=== PATIENT | female | born 1995 | race Caucasian/White ===

== ENCOUNTER → 2016-11-09 | Outpatient (CLI) | payer OTHER ==
[~2016-11-09] MED LIST: BCPILLS PO; PRT/20 PO; ZNTT/150 PO
--- NOTE | 2016-11-09 16:23 | DIAGNOSTIC IMAGING REPORT ---
MRI OF THE LEFT KNEE CLINICAL HISTORY: Left knee pain. COMPARISON STUDY: No priors. TECHNIQUE: MRI of the left knee was performed utilizing proton density, T1, and T2-weighted sequences in the axial, sagittal, coronal planes. IV contrast was not administered for this examination. Note that interpretation is suboptimal without plain film correlate. FINDINGS: Menisci: The medial and lateral menisci are intact. Ligaments: The anterior and posterior cruciate ligaments are intact. The medial and lateral collateral ligaments are within normal limits. Extensor mechanism: The extensor mechanism is intact. Hoffa's fat pad is normal in appearance. Articular cartilage and bone: The articular cartilage is intact and well maintained all 3 compartments. Normal marrow signal is preserved of the visualized bony structures. Joint effusion: None Soft tissues: The musculature surrounding the knee joint is normal in bulk and signal intensity. There is a tiny popliteal cyst which measures up to 1.5 cm. IMPRESSION: 1. There is no evidence of meniscal or ligamentous injury in the left knee. 2. The articular cartilage is well maintained. 3. Tiny popliteal cyst. Electronically signed by: Thomas Reyna M.D. 11/09/2016 4:21 PM Dictated Date/Time: 11/09/2016 4:17 PM
== END | disposition home or self-care (01) ==
LOC: C.MRI 15:13
PROVIDERS: ATTEND Family Medicine Sports Medicine
DX: M25.562 Pain in left knee (principal)

== ENCOUNTER 2017-05-12 12:39 | Emergency (ER) | payer OTHER ==
[~2017-05-12] VITALS: Ht 177.8 cm; Wt 91.4 kg
[~2017-05-12 12:39] MED LIST changes: -PRT/20 PO; -ZNTT/150 PO
[2017-05-12 12:43] VITALS: TEMP 36.6; Ht 177.8 cm; Wt 91.4 kg
[2017-05-12] MEDS ORDERED: SODIUM CHLORIDE 0.9% 1000ML 1,000 ML IV STA (12:54)
[2017-05-12] MEDS ORDERED: KETOROLAC TROMETHAMINE 30 MG/ML VIAL IV STA (12:54)
[2017-05-12] MEDS ORDERED: SODIUM CHLORIDE 0.9% 1000ML 500 ML IV STA (12:54)
[2017-05-12] MEDS ORDERED: ONDANSETRON INJ 2 MG/ML 2 ML VIAL IV STA (12:54)
--- NOTE | 2017-05-12 13:09 | EMERGENCY ROOM VISIT NOTE ---
History Report prepared by Madonna: Ed Melton Under the Supervision of: Dr. Thomas Loving M.D. First contact with patient: 12:48 Chief Complaint: ILLNESS Stated Complaint: NAUSEA,LIGHT HEADED,SHARP STOMACH PAIN History of Present Illness The patient is a 21 year old female who presents to the Emergency Room with complaints of persistent generalized illness beginning two weeks ago. Her symptoms include nausea, an episode of vomiting, upper abdominal pain, and lightheadedness. She states that her abdominal pain began four days ago. The patient notes that she has not been eating much over the past two weeks. She denies any back pain, known fevers, diarrhea, constipation, urinary symptoms, or vaginal discharge. She has no history of similar symptoms. The patient denies any recent falls or trauma. She was seen at [facility] yesterday for similar symptoms. Source of History: patient Onset: two weeks ago Position: other (generalized) Quality: other (illness) Timing: other (persistent) Associated Symptoms: + nausea, + vomiting (one episode), + abdominal pain ( beginning four days ago), No fevers (known), No back pain, No diarrhea, No urinary symptoms Note: The patient denies any vaginal discharge or constipation. She also complains of lightheadedness. Review of Systems See HPI for pertinent positives & negatives. A total of 10 systems reviewed and were otherwise negative. Past Medical & Surgical Medical Problems: (1) Bronchitis (2) Mononucleosis (3) No Known Active Medical Problems Family History No pertinent family history stated. Social History Smoking Status: Never Smoker Alcohol Use: none Drug Use: none Marital Status: single Housing Status: lives alone Occupation Status: [employer] student Current/Historical Medications Scheduled Control Pills ( Control Pills), 1 TAB PO DAILY Pantoprazole (Protonix), 20 MG PO DAILY Ranitidine (Zantac), 150 MG PO BID Allergies Coded Allergies: No Known Allergies (Unverified , 06/05/16) Physical Exam Vital Signs Date Time Temp Pulse Resp B/P (MAP) Pulse Ox O2 Delivery O2 Flow Rate FiO2 05/12/17 15:53 52 18 113/68 100 Room Air 05/12/17 14:44 54 18 122/74 100 Room Air 05/12/17 12:43 36.6 89 18 159/102 99 Room Air Physical Exam GENERAL: Patient is in no acute distress. HEENT: No acute trauma, normocephalic atraumatic, mucous membranes moist, no nasal congestion, no scleral icterus. NECK: No stridor, no adenopathy, no meningismus, trachea is midline. LUNGS: Clear to auscultation bilaterally, no wheeze, no rhonchi, breath sounds equal. HEART: Without murmurs gallops or rubs, regular rate and rhythm. ABDOMEN: Soft, bowel sounds positive, no hernias, no peritonitis. Moderately tender to both upper quadrant but mostly the right upper quadrant. EXTREMITIES: No cyanosis or edema, full range of motion of all the joints without pain or difficulty, no signs for acute trauma. NEUROLOGIC: Oriented x 3, no acute motor or sensory deficits, no focal weakness. SKIN: No rash, no jaundice, no diaphoresis. Medical Decision & Procedures ER Provider Diagnostic Interpretation: Radiology results as stated below per my review and radiologist interpretation: ABDOMINAL ULTRASOUND, RIGHT UPPER QUADRANT FINDINGS: The liver is sonographically normal. No gallstones are identified. There is no gallbladder wall thickening. No biliary ductal dilatation is present. Common bile duct measures 4 mm in caliber. The pancreas is within normal limits by sonography. There is no right hydronephrosis. IMPRESSION: No significant abnormality identified within the right upper quadrant. Electronically signed by: Bradley Magadleno M.D. 05/12/2017 2:39 PM PA CHEST RADIOGRAPH AND UPRIGHT AND SUPINE AP RADIOGRAPHS OF THE ABDOMEN FINDINGS: Lung volumes are normal. Lungs are clear. No pneumothorax or pleural effusion is present. Pulmonary vascularity is normal. Cardiomediastinal silhouette is normal. There is no free air. The bowel gas pattern is normal. IMPRESSION: 1. No free air or evidence of bowel obstruction. 2. No acute cardiopulmonary findings. Electronically signed by: Bradley Magdaleno M.D. Laboratory Results 05/12/17 13:05 Red Blood Count 4.43, Mean Corpuscular Volume 82.8, Mean Corpuscular Hemoglobin 27.5, Mean Corpuscular Hemoglobin Concent 33.2, Mean Platelet Volume 9.7, Neutrophils (%) (Auto) 66.9, Lymphocytes (%) (Auto) 26.3, Monocytes (%) (Auto) 5.7, Eosinophils (%) (Auto) 0.7, Basophils (%) (Auto) 0.2, Neutrophils # (Auto) 6.55, Lymphocytes # (Auto) 2.57, Monocytes # (Auto) 0.56, Eosinophils # (Auto) 0.07, Basophils # (Auto) 0.02 05/12/17 13:05 Test 05/12/17 13:05 05/12/17 13:10 White Blood Count 9.79 K/uL (4.8-10.8) Red Blood Count 4.43 M/uL (4.2-5.4) Hemoglobin 12.2 g/dL (12.0-16.0) Hematocrit 36.7 % (37-47) Mean Corpuscular Volume 82.8 fL (80-100) Mean Corpuscular Hemoglobin 27.5 pg (25-34) Mean Corpuscular Hemoglobin Concent 33.2 g/dl (32-36) Platelet Count 313 K/uL (130-400) Mean Platelet Volume 9.7 fL (7.4-10.4) Neutrophils (%) (Auto) 66.9 % Lymphocytes (%) (Auto) 26.3 % Monocytes (%) (Auto) 5.7 % Eosinophils (%) (Auto) 0.7 % Basophils (%) (Auto) 0.2 % Neutrophils # (Auto) 6.55 K/uL (1.4-6.5) Lymphocytes # (Auto) 2.57 K/uL (1.2-3.4) Monocytes # (Auto) 0.56 K/uL (0.11-0.59) Eosinophils # (Auto) 0.07 K/uL (0-0.5) Basophils # (Auto) 0.02 K/uL (0-0.2) RDW Standard Deviation 43.6 fL (36.4-46.3) RDW Coefficient of Variation 14.2 % (11.5-14.5) Immature Granulocyte % (Auto) 0.2 % Immature Granulocyte # (Auto) 0.02 K/uL (0.00-0.02) Anion Gap 6.0 mmol/L (3-11) Est Creatinine Clear Calc Drug Dose 186.5 ml/min Estimated GFR () > 150.0 Estimated GFR (Non- 131.9 BUN/Creatinine Ratio 13.6 (10-20) Calcium Level 9.1 mg/dl (8.5-10.1) Total Bilirubin 0.3 mg/dl (0.2-1) Aspartate Amino Transf (AST/SGOT) 16 U/L (15-37) Alanine Aminotransferase (ALT/SGPT) 21 U/L (12-78) Alkaline Phosphatase 98 U/L (45-117) Total Protein 7.8 gm/dl (6.4-8.2) Albumin 3.9 gm/dl (3.4-5.0) Globulin 3.9 gm/dl (2.5-4.0) Albumin/Globulin Ratio 1.0 (0.9-2) Lipase 82 U/L (73-393) Human Chorionic Gonadotropin, Qual NEG (NEG) Urine Color YELLOW Urine Appearance CLEAR (CLEAR) Urine pH 5.5 (4.5-7.5) Urine Specific [place] 1.022 (1.000-1.030) Urine Protein NEG (NEG) Urine Glucose (UA) NEG (NEG) Urine Ketones NEG (NEG) Urine Occult Blood 2+ (NEG) Urine Nitrite NEG (NEG) Urine Bilirubin NEG (NEG) Urine Urobilinogen NEG (NEG) Urine Leukocyte Esterase SMALL (NEG) Urine WBC (Auto) 10-30 /hpf (0-5) Urine RBC (Auto) 0-4 /hpf (0-4) Urine Hyaline Casts (Auto) 1-5 /lpf (0-5) Urine Epithelial Cells (Auto) >30 /lpf (0-5) Urine Bacteria (Auto) 1+ (NEG) Laboratory results reviewed by me. Medications Administered Medications (Trade) Dose Ordered Sig/Nitin Route Start Time Stop Time Status Last Admin Dose Admin Sodium Chloride 500 ml @ 999 mls/hr Q31M STAT IV 05/12/17 12:54 05/12/17 13:24 DC 05/12/17 13:13 999 MLS/HR Ondansetron HCl (Zofran Inj) 4 mg NOW STAT IV 05/12/17 12:54 05/12/17 12:56 DC 05/12/17 13:12 4 MG Sodium Chloride 1,000 ml @ 200 mls/hr Q5H STAT IV 05/12/17 12:54 05/12/17 17:53 05/12/17 13:13 200 MLS/HR Ketorolac Tromethamine (Toradol Inj) 30 mg NOW STAT IV 05/12/17 12:54 05/12/17 12:56 DC 05/12/17 13:12 30 MG Pantoprazole Sodium (Protonix Tab) 40 mg NOW STAT PO 05/12/17 14:57 05/12/17 14:58 DC 05/12/17 15:12 40 MG Ranitidine HCl (zANTac TAB) 150 mg NOW STAT PO 05/12/17 14:57 05/12/17 14:58 DC 05/12/17 15:12 150 MG Lidocaine HCl (Viscous Lidocaine 2% Soln) 20 ml STK-MED ONCE .ROUTE 05/12/17 15:20 05/12/17 15:21 DC 05/12/17 15:23 20 ML Al Hydroxide/Mg Hydroxide (Maalox Susp) 30 ml STK-MED ONCE .ROUTE 05/12/17 15:20 05/12/17 15:21 DC 05/12/17 15:23 30 ML ED Course 1248: The patient was evaluated in room C2B. A complete history and physical exam was performed. 1254: Ordered Toradol Inj 30 mg IV, Sodium Chloride 1000 ml @ 200 mls/hr IV, Zofran Inj 4 mg IV, Sodium Chloride 500 ml @ 999 mls/hr IV. 1457: Ordered Zantac Tab 150 mg PO, Protonix Tab 40 mg PO. 1514: Ordered GI Cocktail 24 mL PO. 1540: Reevaluated the patient. Discussed results and discharge instructions: she verbalized understanding and agreement. The patient is ready for discharge. Medical Decision The patient is a 21 year old female who presents to the ED with complaints of nausea and abdominal pain. Differential diagnoses considered include gallbladder disease, pancreatitis, constipation, ulcer, gastritis, UTI, , and appendicitis. There is no leukocytosis or concerning anemia. No significant electrolyte abnormality, kidney failure or hepatitis. No evidence for pancreatitis. testing is negative. Urinalysis does not show infection. Obstruction series does not show constipation, bowel obstruction, free air or pneumonia. Gallbladder ultrasound was unremarkable. The patient received IV saline, IV Toradol and IV Zofran. She was given a GI cocktail. The GI cocktail did seem to help more than anything. She received oral Zantac and oral Protonix. The patient is not toxic or febrile. There is no peritonitis. I think she may have gastritis or possibly an early ulcer. I'm discharging her on Zantac and Protonix. If things are worsening, she can return. She will contact [facility] for a GI referral. Medication Reconcilliation Current Medication List: was personally reviewed by me Blood Pressure Screening Patient's blood pressure: Elevated blood pressure Blood pressure disposition: Elevated BP felt to be situational Impression Primary Impression: Epigastric abdominal pain Additional Impression: Nausea Scribe Attestation The scribe's documentation has been prepared under my direction and personally reviewed by me in its entirety. I confirm that the note above accurately reflects all work, treatment, procedures, and medical decision making performed by me. Departure Information Dispostion Home / Self-Care Prescriptions Pantoprazole (Protonix) 20 Mg Tab 20 MG PO DAILY, #30 TAB 3 Refills Prov: Thomas Loving M.D. 05/12/17 Ranitidine (Zantac) 150 Mg Tab 150 MG PO BID for 14 Days, #28 TAB Prov: Thomas Loving M.D. 05/12/17 Referrals Tabatha Rice PA-C (PCP) Forms HOME CARE DOCUMENTATION FORM, IMPORTANT VISIT INFORMATION, WORK / SCHOOL INSTRUCTIONS Patient Instructions My [facility] Additional Instructions zantac 2x per day for 2 weeks protonix daily for 1 month talk with [facility] about setting up a GI appt use tylenol for pain bland diet as discussed return for fever, vomiting or worsening symptoms testing today was ok as discussed Problem Qualifiers
[2017-05-12 13:21] LABS: BASO % 0.2 %; BASO ABS # 0.02 K/uL (0-0.2); COMPLETE YES; EOS % 0.7 %; HEMATOCRIT 36.7 % (37-47); IG% 0.2 %; LYMPH % 26.3 %; LYMPH ABS # 2.57 K/uL (1.2-3.4); MEAN CELL VOLUME 82.8 fL (80-100); MEAN CORPUSCULAR HEMOGLOBIN 27.5 pg (25-34); MEAN CORPUSCULAR HGB CONC 33.2 g/dl (32-36); MEAN PLATELET VOLUME 9.7 fL (7.4-10.4); MONO % 5.7 %; NEUT % 66.9 %; PLATELET COUNT 313 K/uL (130-400); RED BLOOD COUNT 4.43 M/uL (4.2-5.4); WHITE BLOOD COUNT 9.79 K/uL (4.8-10.8)
[2017-05-12 13:28] LABS: URINE APPEARANCE CLEAR (CLEAR); URINE BILIRUBIN NEG (NEG); URINE COLOR YELLOW; URINE EPITHELIAL CELL AUTO >30 /lpf (0-5); URINE NITRITE NEG (NEG); URINE PH 5.5 (4.5-7.5); URINE SPECIFIC GRAVITY 1.022 (1.000-1.030); UROBILINOGEN NEG (NEG); ZZUR CULT IF INDIC CLEAN CATCH YES
[2017-05-12 13:37] LABS: MANUAL MICROSCOPIC REQUIRED? NO; REVIEW REQ? NO
[2017-05-12 13:38] LABS: ALT/SGPT 21 U/L (12-78); BLOOD UREA NITROGEN 8 mg/dl (7-18); BUN/CREATININE RATIO 13.6 (10-20); CALCIUM 9.1 mg/dl (8.5-10.1); CARBON DIOXIDE 26 mmol/L (21-32); CHLORIDE 105 mmol/L (98-107); CREATININE 0.59 mg/dl (0.60-1.20); GLUCOSE 89 mg/dl (70-99); POTASSIUM 3.5 mmol/L (3.5-5.1); SODIUM 137 mmol/L (136-145)
[2017-05-12 13:41] LABS: ALKALINE PHOSPHATASE 98 U/L (45-117); AST/SGOT 16 U/L (15-37)
[2017-05-12 13:43] LABS: PREG INTERNAL NEGATIVE QC NEG CLEAR BACKGROUND; PREG INTERNAL POSITIVE QC POS CONTROL LINE
--- NOTE | 2017-05-12 14:19 | DIAGNOSTIC IMAGING REPORT ---
PA CHEST RADIOGRAPH AND UPRIGHT AND SUPINE AP RADIOGRAPHS OF THE ABDOMEN CLINICAL HISTORY: Abdominal pain. COMPARISON STUDY: Chest radiograph and chest CT June 15, 2016. FINDINGS: Lung volumes are normal. Lungs are clear. No pneumothorax or pleural effusion is present. Pulmonary vascularity is normal. Cardiomediastinal silhouette is normal. There is no free air. The bowel gas pattern is normal. IMPRESSION: 1. No free air or evidence of bowel obstruction. 2. No acute cardiopulmonary findings. Electronically signed by: Bradley Magdaleno M.D. 05/12/2017 2:18 PM Dictated Date/Time: 05/12/2017 2:17 PM
--- NOTE | 2017-05-12 14:40 | DIAGNOSTIC IMAGING REPORT ---
ABDOMINAL ULTRASOUND, RIGHT UPPER QUADRANT HISTORY: Abdominal pain and nausea. COMPARISON: Abdominal series May 12, 2017. FINDINGS: The liver is sonographically normal. No gallstones are identified. There is no gallbladder wall thickening. No biliary ductal dilatation is present. Common bile duct measures 4 mm in caliber. The pancreas is within normal limits by sonography. There is no right hydronephrosis. IMPRESSION: No significant abnormality identified within the right upper quadrant. Electronically signed by: Bradley Magdaleno M.D. 05/12/2017 2:39 PM Dictated Date/Time: 05/12/2017 2:38 PM
[2017-05-12] MEDS ORDERED: PANTOprazole SOD 40 MG TAB PO STA (14:57)
[2017-05-12] MEDS ORDERED: RANITIDINE HCL 150 MG TAB PO STA (14:57)
[2017-05-12] MEDS ORDERED: GI COCKTAIL PO STA (15:14)
[2017-05-12] MEDS ORDERED: ALUMINUM/MAGNESIUM SUSP 30 ML UDC ONE (15:20)
[2017-05-12] MEDS ORDERED: LIDOCAINE HCL 2% VISC SOLN 20 ML UDC ONE (15:20)
[2017-05-12] MEDS ORDERED: ZNTT/150 PO (15:44)
[2017-05-12] MEDS ORDERED: PRT/20 PO (15:44)
[2017-05-12 15:53] VITALS: BP 113/68; PULSE 52; O2SAT 100
== END 2017-05-12 16:04 | disposition home or self-care (01) ==
LOC: C.EDB 12:40 → C.EDC 16:04
DX: R10.13 Epigastric pain (principal); R11.0 Nausea

== ENCOUNTER 2019-06-26 05:11 | Inpatient (IN) ==
[2019-06-26] MEDS ORDERED: OXYTOCIN 30 UNITS/500 ML BAG IV PRN ×2 (06:40→23:13)
--- NOTE | 2019-06-26 06:49 | History & Physical Report ---
Date of Service June 26, 2019 Assessment & Plan (1) Leakage, amniotic fluid: (2) Premature rupture of membranes: 23 yo at 37 wks with PPROM, no s/s of labor VSS Afebrile FHR reassuring Discussed pitocin IOL, declines and likes to walk and go into labor on her own Plan to admit, monitor, ambulate and reevaluate Will sign out to Heidy Wagner History of Present Illness Chief Complaint: Leaking of fluids Primary Care Provider: Tabatha Rice PA-C Patient is a 23 yo at 37 wks Started to have LOF, multiple gushes and trickles at 4 am, has been clear No ctxs/VB/ Fever/ chills/ N&V +FM's Her has been uncomplicated Allergies Allergy/AdvReac Type Severity Reaction Status Date / Time No Known Allergies Allergy Verified 06/26/19 05:40 Home Medications Home Medications Medication Instructions Recorded Confirmed Type ferrous sulfate 325 mg PO DAILY 06/26/19 06/26/19 History vit [id number] 1 tab PO DAILY 06/26/19 06/26/19 History [ Vitamin] Patient History Medical History No pertinent past medical history Surgical History No pertinent past surgical history Social History Preferred Language: Venezuelan Communication Ability: Effective Network Diagnostic Support Specialist Required: No Beliefs That Will Affect Care: None marital status: Single Current Living Situation: Significant Other Current Living Situation Comment: Pt lives with boyfriend Other Information That Helps Us Care for You: No Feels Safe at Home: Yes Safety Concerns: Feels Safe At This Time Smoking Status: Never smoker Do You Dip or Chew Tobacco: No ; Second Hand Exposure: Yes ; Hx Alcohol Use: No 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
[2019-06-26 07:05] LABS: Hematocrit (blood only) 35.8 % (37-47); Hemoglobin 11.7 g/dL (12.0-16.0); Mean Corpuscular Hemoglobin 27.3 pg (25-34); Mean Corpuscular Volume 83.6 fL (80-100); Mean Platelet Volume 9.5 fL (7.4-10.4); Platelet Count 301 K/uL (130-400); RDW Coefficient of Variation 14.2 % (11.5-14.5); RDW Standard Deviation 42.7 fL (36.4-46.3); Red Blood Count 4.28 M/uL (4.2-5.4)
[2019-06-26 07:28] LABS: Mean Corpuscular Hgb Conc 32.7 g/dL (32-36)
[2019-06-26] MEDS ORDERED: miSOPROStol 50 MCG TAB PO ONE (08:15)
[2019-06-26] MEDS ORDERED: miSOPROStol 50 MCG TAB PO SCH (13:45)
[2019-06-26] MEDS ORDERED: BUTORPHANOL TARTRATE 1 MG/ML VIAL IV PRN (17:04)
[2019-06-26] MEDS ORDERED: BUTORPHANOL TARTRATE 1 MG/ML VIAL ONE (17:12)
[2019-06-26] MEDS: LACTATED RINGER'S 1,000 ML IV PRN ×2 (17:18→19:27)
[2019-06-26] MEDS ORDERED: fentaNYL citrate 100 MCG/2 ML VIAL ONE (18:19)
[2019-06-26] MEDS ORDERED: ePHEDrine sulfate 50 MG/ML AMP ONE (18:19)
[2019-06-26] MEDS ORDERED: BUPIVACAINE 0.25% 30 ML VIAL ONE (18:19)
--- NOTE | 2019-06-26 18:45 | Anesthesiology Consultation ---
Date of Service June 26, 2019 Assessment & Plan (1) Encounter for pre-operative examination: Chart Review Chart Review: Patient NOT seen in Pre Admission Testing and Acceptable Risk for Labor Epidural Consults Requested none ASA ASA2 Proposed Anesthesia Anesthesia Type: Labor Epidural Risk / Benefits Reviewed With: PT / POA / Parent / Guardian, Accepts Plan and Informed Consent Obtained History Height/Weight Height: 5 ft 10 in Weight: 117.934 kg Allergies Allergy/AdvReac Type Severity Reaction Status Date / Time No Known Allergies Allergy Verified 06/26/19 05:40 Medications Home Medications Medication Instructions Recorded Confirmed Last Taken ferrous sulfate 325 mg PO DAILY 06/26/19 06/26/19 06/22/19 08:00 vit no.[id number] 1 tab PO DAILY 06/26/19 06/26/19 06/25/19 08:00 [ Vitamin] Active Medications Generic Name Dose Route Start Last Admin Trade Name Freq PRN Reason Stop Dose Admin Lactated Ringer's 1,000 mls @ 150 mls/hr 06/26/19 06:40 06/26/19 19:27 Lr IV 06/28/19 06:39 999 mls/hr .[id number] PRN Administration L&D Protocol Protocol Misoprostol 50 mcg 06/26/19 13:45 06/26/19 13:54 Cytotec PO 07/26/19 13:44 50 mcg ONCE JAIMEE Administration NPO Date Last Intake of Fluids: 06/26/19 Time Last Intake of Fluids: 18:40 Date Last Intake of Solids: 06/25/19 Time Last Intake of Solids: 17:00 Past Medical History Medical History No pertinent past medical history Exercise / Class Metabolic Activity II 4-5 Yardwork/Stairs/Walk up hill Past Surgical History Surgical History No pertinent past surgical history Past Anesthesia History No Family Hx of Anesthesia Complications History of PONV Hx of Motion Sickness Social History Smoking Status: Never smoker Do You Dip or Chew Tobacco: No Hx Alcohol Use: No Hx Substance Use: No substance use type: does not use Review of Systems Patient denies history of abnormal bleeding or bleeding disorder. Patient denies active use of anticoagulants other than low dose aspirin. Patient denies numbness, tingling or weakness in lower extremities. Physical Exam Vital Signs Last Vital Signs Temp 36.5 C 06/26/19 16:27 Pulse 73 06/26/19 19:29 Resp 20 06/26/19 11:11 BP 149/87 H 06/26/19 19:29 Pulse Ox 96 06/26/19 19:29 Constitutional not obese (Gravid uterus) ENMT Mouth: no TMJ abnormality and oral opening not small Thyromental Distance: > or= 3.5 Finger Breadths Mallampati Class: II Neck normal visual inspection; neck extension not limited Respiratory normal respiratory effort Auscultation: lungs clear to auscultation bilaterally Cardiovascular Rate/Rhythm: regular rate and regular rhythm Heart Sounds: no murmur Neurologic moves all extremities Psychiatric Orientation: alert and oriented x 3 Testing Laboratory Results 06/26/19 06:47
[2019-06-26] MEDS: fentaNYL 2MCG/ML ROPIV 1.25MG/ML 100 ML BAG EPI ONE ×2 (19:02→19:10)
[2019-06-26] MEDS ORDERED: ePHEDrine sulfate 50 MG/ML AMP IV PRN (19:33)
[2019-06-26] MEDS ORDERED: ONDANSETRON INJ 2 MG/ML 2 ML VIAL IV PRN (19:33)
[2019-06-26] MEDS ORDERED: NALBUPHINE HCL INJ 10 MG/ML AMP IV PRN (19:33)
[2019-06-26] MEDS ORDERED: NALOXONE HCL 0.4 MG/1 ML VIAL/CARP IV PRN (19:33)
[2019-06-26] MEDS ORDERED: NALOXONE HCL 1 MG in SODIUM CHLORIDE 0.9% 1000ML 1,000 ML IV PRN (19:33)
[2019-06-26] MEDS ORDERED: fentaNYL 2MCG/ML ROPIV 1.25MG/ML 100 ML BAG EPI PRN (19:33)
[2019-06-26] MEDS ORDERED: DiphenhydrAMINE HCL 50 MG/ML VIAL IV PRN (19:33)
[2019-06-26] MEDS ORDERED: SUPERCREAM 0.870% 15 GM JAR EXT PRN (23:13)
[2019-06-26] MEDS ORDERED: BENZOCAINE 20% AER SPR 82.5 GM CAN EXT PRN (23:13)
[2019-06-26] MEDS ORDERED: OXYCODONE/ACETAMINOPHEN 5mg/325mg TAB PO PRN (23:13)
[2019-06-26] MEDS ORDERED: BISACODYL 10 MG SUPP PR PRN (23:13)
[2019-06-26] MEDS ORDERED: ACETAMINOPHEN W/CODEINE #3 1 TAB PO PRN (23:13)
[2019-06-26] MEDS ORDERED: ACETAMINOPHEN 325 MG TAB PO PRN (23:13)
[2019-06-26] MEDS ORDERED: HYDROCORTISONE ACETATE 25 MG SUPP PR PRN (23:13)
[2019-06-26] MEDS ORDERED: DIPHTHERIA/TETANUS/PERTUSSIS 0.5 ML SYR/VIAL IM ONE (23:13)
--- NOTE | 2019-06-26 23:23 | Anesthesia Procedure Note ---
Date of Service June 26, 2019 Anesthesia Post Epidural Note Vital Signs Vital Signs: Temp Pulse Resp BP Pulse Ox 36.7 C 89 20 100/63 97 06/26/19 21:15 06/26/19 23:14 06/26/19 22:00 06/26/19 23:13 06/26/19 23:14 Pain Intensity Bilateral Abdomen: Pain Intensity: 0 Notes Mental Status: alert / awake / arousable and participated in evaluation Nausea / Vomiting: adequately controlled Pain: adequately controlled Airway Patency, RR, SpO2: stable & adequate BP & HR: stable & adequate Hydration State: stable & adequate Neuraxial Anesthesia: was administered and sensory block is resolving Anesthetic Complications: no major complications apparent and Pt Satisfied with anesthetic care Epidural: Removed without complications and With tip intact
--- NOTE | 2019-06-27 00:42 | Delivery Summary ---
DATE OF OPERATION: 06/26/2019 She is now 1, para 1. Blood type is O negative. Vaginal beta strep negative. She was admitted with spontaneous rupture of membranes at 37 weeks gestation. On admission, she was not having any contractions. She was given p.o. Cytotec 50 mcg. 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 She was given another dose of p.o. Cytotec. On admission, her cervix was 0.5 cm and firm. By the time she got her second p.o. Cytotec dose, it was 1 to 2. She went to full dilatation, pushed out a live female infant via direct occiput anterior position over an intact perineum. Infant was suctioned through the mouth and the nose. Shoulders delivered without difficulty. Cord was clamped, cut by the father. Cord blood was taken. With I.V. Pitocin, the uterus was removed intact. Inspection of the perineum revealed a tear down through the part of the rectal sphincter capsule. Everything was repaired anatomically. We first approximated the anterior rectal sphincter capsule with a running 2-0 heavy Vicryl. Then, I found the top of the vaginal defect and did a running 2-0 Vicryl out to beyond the hymenal ring and did a deep suture to approximate the subvaginal tissues horizontally then did deep suture to approximate the bulbocavernosus muscle, 2 deep sutures to approximate the perineal body. The approximation was palpated and found to be good. Then, I did a running subcuticular suture to approximate the perineal skin edges. Following this, I palpated the repair. There was no hematoma formation. Sponges were removed from the vagina and I did a rectal examination which revealed no stitches through the rectum and good rectal sphincter tone. Following this, hemostasis was good. Estimated blood loss was 400 mL. The patient tolerated the procedure well. I attest to the content of the Intraoperative Record and any orders documented therein. Any exception s are noted below.
[2019-06-27] MEDS: IBUPROFEN 600 MG TAB PO PRN ×4 (03:08→23:40)
[2019-06-27 06:42] LABS: Hemoglobin 10.6 g/dL (12.0-16.0); Mean Corpuscular Hemoglobin 27.5 pg (25-34); Mean Corpuscular Hgb Conc 33.1 g/dL (32-36); Mean Corpuscular Volume 83.1 fL (80-100); Mean Platelet Volume 9.5 fL (7.4-10.4); Platelet Count 272 K/uL (130-400); RDW Coefficient of Variation 14.3 % (11.5-14.5); RDW Standard Deviation 43.4 fL (36.4-46.3); Red Blood Count 3.85 M/uL (4.2-5.4); White Blood Count 14.22 K/uL (4.8-10.8)
[2019-06-27] MEDS: DOCUSATE SODIUM 100 MG CAP PO SCH ×2 (08:54→20:50)
[2019-06-27] MEDS: PRENATAL VITAMIN 1 TAB PO SCH (08:54)
[2019-06-27] MEDS: FERROUS SULFATE 325 MG TAB PO SCH (08:56)
--- NOTE | 2019-06-27 10:23 | Obstetrical Progress Note ---
Date of Service June 27, 2019 Assessment & Plan (1) normal course: PPD 31 pt doing well anticipate disch tomorrow Results & Data Vital Signs (Past 12 Hours) Vital Signs Temp Pulse Pulse Resp BP BP Pulse Ox 06/27/19 08:50 36.9 C 69 20 118/71 06/27/19 07:20 36.8 C 20 06/27/19 07:19 77 118/74 06/27/19 04:05 36.7 C 83 16 116/63 06/27/19 01:15 36.6 C 96 H 96 H 20 125/60 125/60 06/27/19 00:45 79 16 126/79 06/27/19 00:29 93 H 122/90 06/27/19 00:15 102 H 18 118/84 06/27/19 00:00 81 20 115/58 L 06/26/19 23:45 87 18 128/70 06/26/19 23:30 104 H 18 138/65 06/26/19 23:15 36.6 C 20 06/26/19 23:14 89 97 06/26/19 23:13 102 H 100/63 06/26/19 23:10 78 94 06/26/19 23:09 88 97 06/26/19 23:04 100 H 96 06/26/19 23:00 90 106/55 L 06/26/19 22:59 93 H 97 06/26/19 22:54 100 H 96 06/26/19 22:49 93 H 87 L 06/26/19 22:44 94 H 82 L 06/26/19 22:43 88 91 06/26/19 22:39 92 H 96 06/26/19 22:36 96 H 93 06/26/19 22:34 95 H 100 06/26/19 22:30 50 L 18 122/78 06/26/19 22:29 64 98 06/26/19 22:27 84 88 L 06/26/19 22:24 68 98
[2019-06-27] MEDS ORDERED: BISACODYL 5 MG TABEC PO SCH (20:00)
[2019-06-28 06:40] LABS: Hematocrit (blood only) 30.9 % (37-47); Hemoglobin 10.3 g/dL (12.0-16.0)
--- NOTE | 2019-06-28 08:47 | Obstetrical Progress Note ---
Date of Service June 28, 2019 Subjective Patient is seen and examined. She feels well, no complaints. Ambulating without dizziness Voiding without difficulty Tolerating regular diet with out N&V Bleeding is minimal No fever/ chills/ CP/ SOB/ N&V/ Leg pain Breast feeding without problems Vital Signs Temp Pulse Pulse Resp BP BP Pulse Ox 06/27/19 23:35 36.6 C 86 18 119/70 98 06/27/19 19:55 36.8 C 86 18 128/75 97 06/27/19 16:45 36.8 C 70 18 127/76 98 06/27/19 13:44 36.4 C L 81 18 125/74 06/27/19 13:40 36.6 C 87 18 121/77 06/27/19 12:20 36.6 C 92 H 20 125/87 06/27/19 08:50 36.9 C 69 20 118/71 Lab Results 06/26/19 06/27/19 06/27/19 Range/Units 06:47 06:25 06:25 WBC 11.40 H 14.22 H (4.8-10.8) K/uL RBC 4.28 3.85 L (4.2-5.4) M/uL Hgb 11.7 L 10.6 L (12.0-16.0) g/dL Hct 35.8 L 32.0 L (37-47) % MCV 83.6 83.1 (80-100) fL MCH 27.3 27.5 (25-34) pg MCHC 32.7 33.1 (32-36) g/dL RDW Std Deviation 42.7 43.4 (36.4-46.3) fL RDW Coeff of Kory 14.2 14.3 (11.5-14.5) % Plt Count 301 272 (130-400) K/uL MPV 9.5 9.5 (7.4-10.4) fL Blood Type O Negative Antibody Screen NEGATIVE Screen Cancelled Mother's Rh Status RH Neg Maternal Bleed 0 ML KB Cells Counted 0 /Adult RBC Ratio 0.00 06/28/19 Range/Units 06:24 WBC (4.8-10.8) K/uL RBC (4.2-5.4) M/uL Hgb 10.3 L (12.0-16.0) g/dL Hct 30.9 L (37-47) % MCV (80-100) fL MCH (25-34) pg MCHC (32-36) g/dL RDW Std Deviation (36.4-46.3) fL RDW Coeff of Kory (11.5-14.5) % Plt Count (130-400) K/uL MPV (7.4-10.4) fL Blood Type Antibody Screen Screen Mother's Rh Status Maternal Bleed ML KB Cells Counted /Adult RBC Ratio PE: General: Alert, orientedx3, NAD Abd: soft, NT, fundus firm, below Umbilicus Perineum intact, Lochia rubra minimal Ext; NT, no edema AP: 23 yo s/p , ppd# 2 VSS Afebrile doing well Continue routine care All questions were answered Discussed when to call D/C home , f/u in office Results & Data Vital Signs (Past 12 Hours) Vital Signs Temp Pulse Resp BP Pulse Ox 06/27/19 23:35 36.6 C 86 18 119/70 98
[2019-06-28] MEDS: FERROUS SULFATE 325 MG TAB PO SCH (09:48)
[2019-06-28] MEDS: IBUPROFEN 600 MG TAB PO PRN (09:48)
[2019-06-28] MEDS: PRENATAL VITAMIN 1 TAB PO SCH (09:48)
[2019-06-28] MEDS: DOCUSATE SODIUM 100 MG CAP PO SCH (09:48)
== END 2019-06-28 14:30 | disposition home or self-care (01) | DRG 768 ==
LOC: OPB 05:11 → 4S1 05:17 → 4N 06-27 08:12

== ENCOUNTER 2023-10-05 18:34 | Inpatient (IN) ==
--- NOTE | 2023-10-05 18:43 | ED Triage Note ---
Date of Service October 05, 2023 Provider in Triage Author: Denice Chow History of Present Illness This patient was briefly evaluated while in triage. An abbreviated physical exam was performed. This patient is a 27-year-old Female who presents to the ED for evaluation of an infected tattoo to the right outer thigh. She got the tattoo 8 days ago. Started to get redness and discharge from the area. Saw her PCP on Monday and was started on Bactrim. She has been having headache, knee pain, and vomiting since Monday. She talked to her PCP who sent her to the ER for evaluation. Physical Exam GENERAL: Non-toxic and in no acute distress. HEENT: Pupils equal. No obvious scleral icterus. HEART: Regular rate and rhythm. LUNGS: Clear to auscultation. No accessory muscle use. ABDOMEN: Soft, nontender to palpation. NEURO: Alert and oriented. No obvious neurological deficits on quick neuro exam. MUSCULOSKELETAL/SKIN: The patient has a tattoo to the right outer thigh with erythema, edema, crusting, and discharge. The erythema extends down towards the knee. The patient is tender to palpation over the right thigh and the right knee. Initial orders for labs and / or imaging were placed and patient was placed in the waiting area until a bed is available. Please see further documentation for the full ED course. MDM / Impression Impression Impression: Cellulitis Impression: Cellulitis Qualifiers: Site of cellulitis of extremity: lower extremity Laterality: right
[2023-10-05] MEDS: KETOROLAC TROMETHAMINE 15 MG/ML VIAL IV ONE (19:48)
[2023-10-05] MEDS: SODIUM CHLORIDE 0.9% 1,000 ML IV ONE (19:48)
[2023-10-05 20:04] LABS: Basophils # (auto) 0.03 K/uL (0.00-0.20); Basophils % (auto) 0.3 %; Eosinophils # (auto) 0.05 K/uL (0.00-0.50); Eosinophils % (auto) 0.4 %; Hematocrit (blood only) 36.3 % (37.0-47.0); Hemoglobin 12.2 g/dl (12.0-16.0); Immature Granulocytes # (auto) 0.05 K/uL (0.01-0.20); Immature Granulocytes % (auto) 0.4 %; Lymphocytes # (auto) 2.82 K/uL (1.20-3.40); Lymphocytes % (auto) 24.6 %; Mean Corpuscular Hemoglobin 27.8 pg (25.0-34.0); Mean Corpuscular Hgb Conc 33.6 g/dL (32.0-36.0); Mean Corpuscular Volume 82.7 fL (80.0-100.0); Mean Platelet Volume 9.7 fL (9.4-12.4); Monocytes # (auto) 0.59 K/uL (0.11-0.59); Monocytes % (auto) 5.1 %; Neutrophils # (auto) 7.93 K/uL (1.40-6.50); Neutrophils % (auto) 69.2 %; Platelet Count 411 K/uL (130-400); RDW Coefficient of Variation 14.1 % (11.5-14.5); RDW Standard Deviation 42.6 fL (36.4-46.3); Red Blood Count 4.39 M/uL (4.20-5.40); White Blood Count 11.47 K/ul (4.8-10.8)
[2023-10-05 20:23] LABS: Pregnancy Test, Serum Negative (Negative)
[2023-10-05 20:30] LABS: Bilirubin,Total 0.3 mg/dl (0.2-1.0); Calcium 8.9 mg/dl (8.6-10.3); Potassium 3.8 mmol/L (3.5-5.1)
[2023-10-05 20:36] LABS: Albumin Globulin Ratio 1.1 (0.9-2); BUN Creatinine Ratio 17.5 (10-20); Creatinine Clr Calc Pharmacy 200.2 ml/min; Est GFR (African American) 148.3 ml/min; Est GFR (Non-African American) 127.9 ml/min; Globulin 3.6 gm/dl (2.5-4.0); Total Protein 7.6 gm/dl (6.0-8.3)
[2023-10-05] MEDS ORDERED: VANCOMYCIN CONSULT ACTIVE PRN (21:49)
[2023-10-05] MEDS: CEFEPIME 2,000 MG/20 ML VIAL IV STA (22:16)
[2023-10-05] MEDS: VANCOMYCIN HCL 2,250 MG in SODIUM CHLORIDE 0.9% 500 ML IV ONE (22:16)
[2023-10-05] MEDS: CEFEPIME 2,000 MG/20 ML VIAL ONE (22:20)
[2023-10-05] MEDS: cefTRIAXone SODIUM 2,000 MG/50 ML BAG IV STA (22:20)
[2023-10-05 22:50] LABS: Estimated Average Glucose 114 mg/dl; Hemoglobin A1C 5.6 % (4.5-5.6)
--- NOTE | 2023-10-05 22:58 | History & Physical Report ---
Date of Service October 05, 2023 Assessment & Plan (1) Sepsis: Plan: Secondary to right thigh cellulitis following tattoo placement Failed outpatient treatment Rule out abscess Situational hypertension secondary to illness migraine, recent migraine attack currently resolved at the ER anxiety disorder, stable off maintenance medications Hyperglycemia rule out DM Medical telemetry given elevated BP Analgesia CS, Doxycycline, Cefepime CT right thigh rule out abscess Local measures for RLE cellulitis May need orthopedics consult contingent on CT results Check hemoglobin A1c DVT prophylaxis SCDs Re: Scant bleeding from right thigh swelling Full code Text document was generated using [employer] voice recognition software. It may contain grammatical or spelling errors. Kindly contact undersigned for clarification of any documentation item in question. History of Present Illness Chief Complaint: Worsening right thigh swelling Primary Care Provider: Mulu Mock DO History obtained from patient and records. Medical history significant for migraine, anxiety disorder, obesity. Last week patient got a tattoo on her right thigh. A few days later she noted 'icky' blood-tinged drainage and increased swelling on right thigh. Tachycardia noted at home. No chest pain, no SOB. Patient seen at PCPs office 3 days ago. Bactrim started for RLE cellulitis secondary to tattoo reaction. Worsening swelling despite compliance with medications. Pain extending to the right knee. Transient migraine attack associated with nausea and emesis without abdominal pain. Patient consulted ER. Highest SBP of 160s documented at the ER. IV vancomycin administered at the ER. 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 Allergies Allergy/AdvReac Type Severity Reaction Status Date / Time No Known Allergies Allergy Verified 10/05/23 22:27 Home Medications Medication Instructions Recorded Confirmed Type breast pump #1 ea 06/28/19 Rx norgestimate 0.18 mg/0.215 mg/0.25 1 tab PO DAILY 10/05/23 10/05/23 History mg-ethinyl estradiol 25 mcg tablet (Mie-Xs-Pmpvcy) sulfamethoxazole 800 1 tab PO BID 10/05/23 10/05/23 History mg-trimethoprim 160 mg tablet Past Med/Surg History Medical History (Updated 10/06/23 @ 00:36 by Roberto Vaughan MD) No pertinent past medical history Surgical History No pertinent past surgical history Social History Smoking Status: Never smoker Second Hand Exposure: Yes; Do You Dip or Chew Tobacco: No; Hx Alcohol Use: No Hx Substance Use: No Preferred Language: Icelandic Communication Ability: Effective Seam Checker Required: No Beliefs That Will Affect Care: None marital status: Single Current Living Situation: Significant Other Current Living Situation Comment: Pt lives with boyfriend Feels Safe at Home: Yes Assistive Devices: None Review of Systems Review of Systems: As per HPI, all other systems reviewed and negative Physical Exam Physical Exam: GENERAL: Comfortable, pleasant, obese, no respiratory distress SKIN: Normal color, warm HEENT: [place] palpebral conjunctivae, no ptosis, moist buccal mucosa NECK : Supple, short neck, no tenderness CHEST : CTA, no tenderness HEART : RRR, no obvious murmurs ABDOMEN: Some distention, nontender EXTREMITIES : Tender swelling right thigh with yellow crusting over tattoo image, no other conspicuous deformities noted NEUROLOGIC : Coherent, no facial asymmetry, no other gross focality Results & Data Results & Data Vital Signs (Past 12 Hours) Vital Signs Temp Pulse Pulse Resp BP BP Pulse Ox 10/05/23 21:10 78 18 162/90 H 98 10/05/23 20:20 78 18 132/86 100 10/05/23 18:38 36.6 C 103 H 18 155/85 H 97 O2 Del Method 10/05/23 21:10 Room Air 10/05/23 20:20 Room Air 10/05/23 18:38 Room Air Laboratory Results Laboratory Results WBC 11.47 K/ul (4.8-10.8) H 10/05/23 19:20 RBC 4.39 M/uL (4.20-5.40) 10/05/23 19:20 Hgb 12.2 g/dl (12.0-16.0) 10/05/23 19:20 Hct 36.3 % (37.0-47.0) L 10/05/23 19:20 MCV 82.7 fL (80.0-100.0) 10/05/23 19:20 MCH 27.8 pg (25.0-34.0) 10/05/23 19:20 MCHC 33.6 g/dL (32.0-36.0) 10/05/23 19:20 RDW Std Deviation 42.6 fL (36.4-46.3) 10/05/23 19:20 RDW Coeff of Kory 14.1 % (11.5-14.5) 10/05/23 19:20 Plt Count 411 K/uL (130-400) H 10/05/23 19:20 MPV 9.7 fL (9.4-12.4) 10/05/23 19:20 Immature Gran % (Auto) 0.4 % 10/05/23 19:20 Neut % (Auto) 69.2 % 10/05/23 19:20 Lymph % (Auto) 24.6 % 10/05/23 19:20 [place] % (Auto) 5.1 % 10/05/23 19:20 Eos % (Auto) 0.4 % 10/05/23 19:20 Baso % (Auto) 0.3 % 10/05/23 19:20 Neut # (Auto) 7.93 K/uL (1.40-6.50) H 10/05/23 19:20 Lymph # (Auto) 2.82 K/uL (1.20-3.40) 10/05/23 19:20 [place]ie # (Auto) 0.59 K/uL (0.11-0.59) 10/05/23 19:20 Eos # (Auto) 0.05 K/uL (0.00-0.50) 10/05/23 19:20 Baso # (Auto) 0.03 K/uL (0.00-0.20) 10/05/23 19:20 Immature Gran # (Auto) 0.05 K/uL (0.01-0.20) 10/05/23 19:20 Sodium 137 mmol/L (136-145) 10/05/23 19:20 Potassium 3.8 mmol/L (3.5-5.1) 10/05/23 19:20 Chloride 105 mmol/L (98-107) 10/05/23 19:20 Carbon Dioxide 24 mmol/L (21-32) 10/05/23 19:20 Anion Gap 8 (3-11) 10/05/23 19:20 BUN 10 mg/dl (6-23) 10/05/23 19:20 Creatinine 0.57 mg/dl (0.6-1.2) L 10/05/23 19:20 Est Cr Clr Drug Dosing 200.2 ml/min 10/05/23 19:20 Est GFR ( Amer) 148.3 ml/min 10/05/23 19:20 Est GFR (Non-Af Amer) 127.9 ml/min 10/05/23 19:20 BUN/Creatinine Ratio 17.5 (10-20) 10/05/23 19:20 Glucose 128 mg/dl (70-99(Fasting)) H 10/05/23 19:20 Estimat Average Glucose 114 mg/dl 10/05/23 19:20 Hemoglobin A1c 5.6 % (4.5-5.6) 10/05/23 19:20 Lactate 0.8 mmol/L (0.4-2.0) 10/05/23 19:20 Calcium 8.9 mg/dl (8.6-10.3) 10/05/23 19:20 Total Bilirubin 0.3 mg/dl (0.2-1.0) 10/05/23 19:20 AST 18 U/L (13-39) 10/05/23 19:20 ALT 19 U/L (7-52) 10/05/23 19:20 Alkaline Phosphatase 85 U/L (34-104) 10/05/23 19:20 Total Protein 7.6 gm/dl (6.0-8.3) 10/05/23 19:20 Albumin 4.0 gm/dl (3.4-5.0) 10/05/23 19:20 Globulin 3.6 gm/dl (2.5-4.0) 10/05/23 19:20 Albumin/Globulin Ratio 1.1 (0.9-2) 10/05/23 19:20 Lipase 5 U/L (11-82) L 10/05/23 19:20 Procalcitonin < 0.02 ng/ml (0-0.5) 10/05/23 19:20 HCG, Qual Negative (Negative) 10/05/23 19:20 Diagnostic Findings EKG as per my interpretation :Rate 85, NSR, normal axis, T wave abnormalities inferior and anterolateral leads
[2023-10-05] MEDS ORDERED: oxyCODONE HCL IR 5 MG TAB (IMMEDIATE RELEASE) PO PRN (23:02)
[2023-10-05] MEDS ORDERED: MoRPHine SULFATE 4 MG/ML 1 ML CARP\\VIAL IV PRN (23:02)
[2023-10-05] MEDS ORDERED: LORazepam 0.5 MG TAB PO PRN (23:02)
[2023-10-05] MEDS ORDERED: PROMETHAZINE HCL 12.5 MG in SODIUM CHLORIDE 0.9% 50 ML IV PRN (23:02)
[2023-10-06] MEDS: OPTIRAY 320 500ml IV ONE (00:06)
--- NOTE | 2023-10-06 00:23 | Emergency Department Note ---
History of Present Illness General Chief complaint: Infection Stated complaint: INFECTION Time Seen by Provider: 10/05/23 21:13 History of Present Illness Provider complaint: Right-sided leg infection Onset (ago): day(s) (8) Location: lower extremity and right Maximum Pain Intensity: 8 Associated symptoms: + rash 27-year-old female presents emergency department for right-sided leg infection. Patient reports she got a tattoo on her right thigh 8 days ago. She states after that she started having redness around it and was draining a clear fluid. She states she was placed on Bactrim on Monday but it does not appear to be getting better. She reports getting vomiting today. No fever. Home Medications Medication Instructions Recorded Confirmed Type breast pump #1 ea 06/28/19 Rx norgestimate 0.18 mg/0.215 mg/0.25 1 tab PO DAILY 10/05/23 10/05/23 History mg-ethinyl estradiol 25 mcg tablet (Zvx-Mn-Kktacr) sulfamethoxazole 800 1 tab PO BID 10/05/23 10/05/23 History mg-trimethoprim 160 mg tablet Allergies Allergy/AdvReac Type Severity Reaction Status Date / Time No Known Allergies Allergy Verified 10/05/23 22:27 Past Med/Surg History Medical History (Updated 10/06/23 @ 00:23 by Kvng Curtis MD) No pertinent past medical history Surgical History No pertinent past surgical history Social History Smoking Status: Never smoker Second Hand Exposure: Yes; Do You Dip or Chew Tobacco: No; Hx Alcohol Use: No Hx Substance Use: No Preferred Language: Palauan Communication Ability: Effective Lead Principal Technical Architect Required: No Beliefs That Will Affect Care: None marital status: Single Current Living Situation: Significant Other Current Living Situation Comment: Pt lives with boyfriend Feels Safe at Home: Yes Assistive Devices: None Physical Exam Vital Signs Vital Signs - 24 hr 10/05/23 18:38 10/05/23 20:20 10/05/23 21:10 Temperature 36.6 C Temperature Source Temporal Artery Scan Pulse Rate 103 H Pulse Rate [Finger] 78 78 Respiratory Rate 18 18 18 Respiratory Effort / Characteristics Non-Labored Spontaneous Non-Labored Spontaneous Non-Labored Respiratory Depth Normal Normal Normal Respiratory Pattern Regular Regular Blood Pressure 155/85 H Blood Pressure [Right Arm] 132/86 162/90 H Blood Pressure Mean 108 Blood Pressure Mean [Right Arm] 101 114 Blood Pressure Position Sitting Blood Pressure Position [Right Arm] Sitting Pulse Oximetry 97 100 98 Oxygen Delivery Method Room Air Room Air Room Air Sepsis Recent Fever Within 48 Hours Yes Sepsis New/Unexplained Change in Mental Status N/A Sepsis Action Taken by Nursing No Action Required Physical Exam GENERAL: oriented to person, place, and time. appears well-developed and well- nourished. HENT: Exam performed. - Head: Normocephalic and atraumatic. EYES: Conjunctivae and EOM are normal. Right eye exhibits no discharge. Left eye exhibits no discharge. No scleral icterus. NECK: Normal range of motion. Neck supple. No JVD present. CV: Normal rate, regular rhythm, normal heart sounds and intact distal pulses. There is no peripheral edema. Palpable radial pulses bue. PULM/CHEST: Effort normal and breath sounds normal. No respiratory distress. No stridor. no wheezes. no rales. ABD: The abdomen is soft. There is no tenderness. NEURO: Motor and sensation grossly intact. SKIN: Erythematous and scaling rash over the right lateral thigh where the tattoo is. There is warmth. Nikolsky negative. No vesicles. Consistent with cellulitis. PSYCH: normal mood and affect. Behavior is normal. Judgment and thought content normal. Course Course 2112: The patient was evaluated in room B11A. A complete history and physical exam was performed Administered Medications Vancomycin HCl 2,250 mg/ (Sodium Chloride) 545 mls @ 200 mls/hr IV NOW ONE Stop: 10/06/23 00:32 Last Admin: 10/05/23 22:16 Dose: 200 mls/hr Documented By: PITER Ioversol (Optiray 320 500ml) 100 ml IV ONCE ONE Stop: 10/06/23 00:07 Last Admin: 10/06/23 00:06 Dose: 100 ml Documented By: BIB Discontinued Medications Cefepime HCl (Cefepime 2,000 Mg/20 Ml Vial) Confirm Administered Dose 2,000 mg .ROUTE .STK-MED ONE Stop: 10/05/23 22:17 Last Admin: 10/05/23 22:20 Dose: Not Given Documented By: PITER Sodium Chloride (Nss) 1,000 mls @ 999 mls/hr IV .Q1H1M ONE Stop: 10/05/23 19:43 Last Infusion: 10/05/23 20:58 Dose: Infused Documented By: Admin: 10/05/23 19:48 Dose: 999 mls/hr Documented By: DILSHAD Ceftriaxone Sodium (Rocephin) 2,000 mg in 50 mls @ 100 mls/hr IV NOW STA Stop: 10/05/23 22:18 Last Admin: 10/05/23 22:20 Dose: Not Given Documented By: PITER Cefepime HCl (Maxipime) 2,000 mg in 20 mls @ 5 mls/min IV NOW STA; Protocol Stop: 10/05/23 22:15 Last Admin: 10/05/23 22:16 Dose: 5 mls/min Documented By: PITER Ketorolac Tromethamine (Ketorolac Tromethamine 15 Mg/Ml Vial) 10 mg IV NOW ONE Stop: 10/05/23 18:44 Last Admin: 10/05/23 19:48 Dose: 10 mg Documented By: DILSHAD Medical Decision Making Laboratory Data Attestation: I reviewed the patient's lab results. 10/05/23 19:20 10/05/23 19:20 Lab Results 10/05/23 Range/Units 19:20 WBC 11.47 H (4.8-10.8) K/ul RBC 4.39 (4.20-5.40) M/uL Hgb 12.2 (12.0-16.0) g/dl Hct 36.3 L (37.0-47.0) % MCV 82.7 (80.0-100.0) fL MCH 27.8 (25.0-34.0) pg MCHC 33.6 (32.0-36.0) g/dL RDW Std Deviation 42.6 (36.4-46.3) fL RDW Coeff of Kory 14.1 (11.5-14.5) % Plt Count 411 H (130-400) K/uL MPV 9.7 (9.4-12.4) fL Immature Gran % (Auto) 0.4 % Neut % (Auto) 69.2 % Lymph % (Auto) 24.6 % [place] % (Auto) 5.1 % Eos % (Auto) 0.4 % Baso % (Auto) 0.3 % Neut # (Auto) 7.93 H (1.40-6.50) K/uL Lymph # (Auto) 2.82 (1.20-3.40) K/uL [place] # (Auto) 0.59 (0.11-0.59) K/uL Eos # (Auto) 0.05 (0.00-0.50) K/uL Baso # (Auto) 0.03 (0.00-0.20) K/uL Immature Gran # (Auto) 0.05 (0.01-0.20) K/uL Sodium 137 (136-145) mmol/L Potassium 3.8 (3.5-5.1) mmol/L Chloride 105 (98-107) mmol/L Carbon Dioxide 24 (21-32) mmol/L Anion Gap 8 (3-11) BUN 10 (6-23) mg/dl Creatinine 0.57 L (0.6-1.2) mg/dl Est Cr Clr Drug Dosing 200.2 ml/min Est GFR ( Amer) 148.3 ml/min Est GFR (Non-Af Amer) 127.9 ml/min BUN/Creatinine Ratio 17.5 (10-20) Glucose 128 H (70-99(Fasting)) mg/dl Estimat Average Glucose 114 mg/dl Hemoglobin A1c 5.6 (4.5-5.6) % Lactate 0.8 (0.4-2.0) mmol/L Calcium 8.9 (8.6-10.3) mg/dl Total Bilirubin 0.3 (0.2-1.0) mg/dl AST 18 (13-39) U/L ALT 19 (7-52) U/L Alkaline Phosphatase 85 (34-104) U/L Total Protein 7.6 (6.0-8.3) gm/dl Albumin 4.0 (3.4-5.0) gm/dl Globulin 3.6 (2.5-4.0) gm/dl Albumin/Globulin Ratio 1.1 (0.9-2) Lipase 5 L (11-82) U/L Procalcitonin < 0.02 (0-0.5) ng/ml HCG, Qual Negative (Negative) Imaging Data Attestation: I personally reviewed and interpreted this imaging study as follows: My Impression: Right femur x-ray: No acute fracture or dislocation Right knee x-ray: No acute fracture or dislocation MDM Narrative Cardiac monitoring: An order was placed for continuous cardiac monitoring. The monitor shows a rate of 100 with sinus rhythm interpreted by me Patient was seen during a time of extreme volume and extreme acuity. Nursing triage protocols were initiated labs and imaging was conducted by protocol in the triage area. Vital signs stable. Labs and imaging within normal limits. Patient will be admitted for cellulitis failed outpatient treatment. Rocephin and vancomycin ordered for the patient. Discussed case with Dr. Ramirez [facility] hospitalist who admit the patient. Impression & Plan Cellulitis Discharge Plan Visit Data Chief Complaint: Infection Stated Complaint: INFECTION ED Provider: Kvng Curtis Discharge Problem: Cellulitis Patient Disposition: Admitted As Inpatient Discharge Instructions Interventions: ED Discharge Assessment Last Done: 10/05/23 23:52 Forms Stand Alone Forms: My [facility] [place] Prescriptions Prescriptions: No Action (DME) breast pump device See Dose Instructions .ROUTE .MEDSUPPLY Qty: 1 0RF Dose Instruction: As directed Rx Instructions: As directed sulfamethoxazole-trimethoprim 800-160 mg tablet 1 tab PO BID Rx Instructions: STARTED 10/02/23 FOR 10 DAYS norgestimate-ethinyl estradiol [Lzz-Tu-Fklgoc] 0.18/0.215/0.25 mg-25 mcg tablet 1 tab PO DAILY Referrals Referrals: Mulu Mock DO [Primary Care Provider] - Discharge Problem: Cellulitis Qualifiers: Site of cellulitis of extremity: lower extremity Laterality: right
--- NOTE | 2023-10-06 01:22 | CT Scan Report ---
Exam(s): CT EXTREMITY RIGHT LOWER With Contrast IV Amt: 100 ML OPTIRAY 320 EXAM: CT Right Lower Extremity With Intravenous Contrast CLINICAL HISTORY: Reason for exam: swelling ro abscess. TECHNIQUE: Axial computed tomography images of the right lower extremity with intravenous contrast. CTDI is 20.38 mGy and DLP is 1239.18 mGy-cm. Automated exposure control was utilized for the study. A dose lowering technique was utilized adhering to the principles of ALARA. CONTRAST: Patient received 100 ML OPTIRAY 320 of IV contrast COMPARISON: None. FINDINGS: Bones/joints: Unremarkable. No acute fracture. No dislocation. Soft tissues: Mild skin thickening and subcutaneous fat stranding along the lateral aspect of the right thigh without discrete abscess. IMPRESSION: Mild skin thickening and subcutaneous fat stranding along the lateral aspect of the right thigh without discrete abscess. This may represent cellulitis. Clinical correlation is recommended. Electronically signed by: David Estevez MD 10/06/23 01:22 AM
--- NOTE | 2023-10-06 05:40 | Ultrasound Report ---
Exam(s): US VENOUS RIGHT LOWER EXTREMITY EXAM: US Duplex Right Lower Extremity Veins CLINICAL HISTORY: swelling. TECHNIQUE: Real-time duplex ultrasound scan of the right lower extremity veins integrating B-mode two-dimensional vascular structure, Doppler spectral analysis, color flow Doppler imaging and compression. COMPARISON: No relevant prior studies available. FINDINGS: Deep veins: Unremarkable. No DVT in the visualized common femoral, femoral, proximal deep femoral or popliteal veins. The veins demonstrate normal color flow, are normally compressible, with normal phasic flow and/or augmentation response. Superficial veins: Unremarkable. No thrombus in the visualized great saphenous vein. Soft tissues: No acute findings. No popliteal cyst. IMPRESSION: No deep vein thrombosis of the right lower extremity. Electronically signed by: Shirlene Marrero MD 10/06/23 05:39 AM
[2023-10-06] MEDS: CEFEPIME 2,000 MG in SYRINGE 0 ML IV SCH (05:45)
[2023-10-06 06:35] LABS: Basophils # (auto) 0.03 K/uL (0.00-0.20); Basophils % (auto) 0.3 %; Eosinophils # (auto) 0.14 K/uL (0.00-0.50); Eosinophils % (auto) 1.5 %; Hemoglobin 10.7 g/dl (12.0-16.0); Immature Granulocytes # (auto) 0.04 K/uL (0.01-0.20); Immature Granulocytes % (auto) 0.4 %; Lymphocytes # (auto) 2.64 K/uL (1.20-3.40); Lymphocytes % (auto) 27.5 %; Mean Corpuscular Hemoglobin 27.8 pg (25.0-34.0); Mean Corpuscular Hgb Conc 32.4 g/dL (32.0-36.0); Mean Corpuscular Volume 85.7 fL (80.0-100.0); Mean Platelet Volume 9.4 fL (9.4-12.4); Monocytes # (auto) 0.69 K/uL (0.11-0.59); Monocytes % (auto) 7.2 %; Neutrophils # (auto) 6.06 K/uL (1.40-6.50); Neutrophils % (auto) 63.1 %; Platelet Count 330 K/uL (130-400); RDW Coefficient of Variation 14.1 % (11.5-14.5); RDW Standard Deviation 44.1 fL (36.4-46.3); Red Blood Count 3.85 M/uL (4.20-5.40)
--- NOTE | 2023-10-06 06:37 | XRay Report ---
XR knee RT 3V HISTORY: 27 years-old Female Knee pain, infection acute right knee pain COMPARISON: Femur radiographs of same day TECHNIQUE: 3 views of the right knee FINDINGS: No acute fracture, dislocation, osseous erosion or large joint effusion. IMPRESSION: No acute osseous abnormality. ACT 112: Negative or not required by law. The above report was generated using voice recognition software. It may contain grammatical, syntax o r spelling errors. Electronically signed by: Bhanu Arias M.D. 10/06/2023 6:35 AM
[2023-10-06 06:53] LABS: BUN Creatinine Ratio 17.9 (10-20); Calcium 8.2 mg/dl (8.6-10.3); Creatinine Clr Calc Pharmacy 207.5 ml/min; Est GFR (African American) 149.1 ml/min; Est GFR (Non-African American) 128.7 ml/min; Potassium 3.8 mmol/L (3.5-5.1)
--- OUTSIDE RECORDS SUMMARY | 2023-10-06 07:18 | External Medical Summary | Summary of Care ---
Author Name Unknown Organization [facility] Address [address] [place] [address] Phone [phone] Care Team Providers Care Shoe Handler Name Role Phone Mulu Mock Primary Care Provider + [phone] Reason for Visit * Reason Comments Acute Infected tattoo Encounter Details Date Type Department Care Team (Late st Contact Info) Description 10/02/2023 12:00 PM EST Office Visit [facility] [address] [place] [address] Devonte Plasencia MD [address] [place] [address] Cellulitis of right lower extremity*; Tattoo reaction Allergies Active Allergy Reactions Criticality Noted Date Comments Apple Juice Itching 07/08/2019 Naproxen Rash Low 02/10/2022 Pineapple Nausea/vomiting 07/08/2019 Ondansetron Rash Low 02/10/2022 documented as of this encounter (statuses as of 10/02/2023) Medications Medication Sig Dispensed Refills Start Date End Date Status Fexofenadine HCl 180 MG Oral Tablet (Savanah)Indications :Allergic dermatitis Take by mouth 1 Tablet daily as needed (itching). 30 Tablet 11 02/10/2022 Active Sertraline HCl 100 MG Oral Tablet (Zoloft)Indications: Anxiety Take by mouth 1 Tablet in the morning. 90 Tablet 3 04/22/2022 Active Ibuprofen 800 MG Oral Tablet (Motrin) Take 1 Tablet by mouth every 8 hours as needed for Pain, Mild. With food. 30 Tablet 0 01/27/2023 Active Norgestim-Eth Estrad Triphasic 0.18/0.215/0.25 MG-25 MCG Oral Tablet (Gqo-Vi-Wfghlrzdn)In dications:Encounter for initial prescription of contraceptive pills Take 1 Tablet by mouth in the morning. 84 Tablet 1 02/09/2023 Active Triamcinolone Acetonide 0.1 % External Cream (Aristocort)Indicati ons:Irritant contact dermatitis due to other chemical products Apply topically to affected area 2 times a day. To affected area. 60 g 0 06/07/2023 Active Sulfamethoxazole-Tri methoprim 800-160 MG Oral Tablet (Bactrim DS) Take 1 Tablet by mouth in the morning and 1 Tablet before bedtime. Do all this for 10 days. Until gone.. 20 Tablet 0 10/02/2023 10/12/2023 Active documented as of this encounter (statuses as of 10/02/2023) Active Problems Problem Noted Date Diagnosed Date Obesity, Class I, BMI 30.0-34.9 (see actual BMI) 08/02/2022 JAMIL (generalized anxiety disorder) 10/13/2020 documented as of this encounter (statuses as of 10/02/2023) Resolved Problems Problem Noted Date Diagnosed Date Resolved Date Food insecurity 05/09/2022 08/02/2022 Overview: Per [facility] Protocol Rh negative status during 11/28/2018 08/13/2020 Overview: Rhogam candidate Supervision of normal first , antepartum 11/22/2018 06/26/2019 ADVANCE DIRECTIVE INFORMATION 03/13/2006 08/13/2020 Overview: Not applicable (under age of 18) documented as of this encounter (statuses as of 10/02/2023) Immunizations Name Administration Dates Next Due COVID-19 mRNA, LNP-s, No Pre serve, 2-Dose Series ([email or web address]) 09/14/2021,09/15/2020,08/24/2020 Covid-19, Mrna, Lnp-s, Pf, B ivalent, 30 Mcg, IM, 12 yrs and above (Pfizer) 09/27/2022 HPV Vaccine, 4-Valent 10/08/2008,06/11/2008,02/27 Meningococcal Conjugate Vacc ine (Menactra/Menveo) 06/19/2013,10/08/2008 PPD 03/04/2021, 9,04/20/2017,12/18 Seasonal Influenza, PF, 6 M & above, IM , (FluLaval or Fluzone) 06/30/2023,06/23/2022,05/17/2021,06/07,06/29/2018,05/19/2017 Seasonal Influenza, Quadriva lent, No Preserve, IM 05/19/2020 Seasonal Influenza, Split, I IV3, With Preserve, Inj 06/23/2014,07/14/2011 TDAP (age 10 and older)(Boostrix) 04/24/2019 TDAP (age 11 and older)(Adacel) 04/10/2009 Varicella Vaccine (Chicken Pox) 03/26/2008 documented as of this encounter Social History Tobacco Use Types Packs/Day Years Used Date Smoking Tobacco: Never Passive Smoke Exposure: Current Smokeless Tobacco: Never Tobacco Cessation:Counseling Given: Not Answered Alcohol Use Standard Drinks/Week Comments No 0 (1 standard drink = 0.6 oz pur e alcohol) twice a month per patient AUDIT-C Answer Date Recorded Frequency of Alcohol Consumption Never 11/22/2018 Average Number of Drinks Not on file 019 Frequency of Binge Drinking Not on file 10/27 PHQ-2 Answer Date Recorded PHQ-2 Score 0 08/03/2020 Hunger Vital Sign Answer Date Recorded Within the past 12 months, y ou worried that your food would run out before you got the money to buy more. Never true 01/22/20 23 Within the past 12 months, t he food you bought just didn't last and you didn't have money to get more. Never true 01/21/2023 [place] Depression Scale Answer Date Recorded [place] Depression Scale Score 9 08/07/2019 The thought of harming myself has occurred to me . (Pt Reported) 08/07/2019 Sex and Gender Information Value Date Recorded Sex Assigned at Female 03/14/2020 8:40 AM EDT Gender Identity Female 03/14/2020 8:40 AM EDT Sexual Orientation Straight 07/08/2019 12 :42 PM EST Job Start Date Occupation Industry Not on file Not on file Not on file documented as of this encounter Last Filed Vital Signs Vital Sign Reading Time Taken Comments Blood Pressure 120/64 10/02/2023 11:55 AM EST Pulse 96 10/02/2023 11:55 AM EST Temperature 35.6 C (96.1 F) 10/02/2023 11:[address] Respiratory Rate 16 10/02/2023 11:55 AM EST Oxygen Saturation 99% 10/02/2023 11:55 AM EST Inhaled Oxygen Concentration - - Weight 114.3 kg (252 lb) 10/02/2023 11:55 AM EST Height - - Body Mass Index 36.16 02/03/2023 8:17 AM EDT documented in this encounter Progress Notes * Devonte Plasencia MD - 10/02/2023 12:22 PM EST Images from the original note were not included. Subjective Johana Contreras is a 27 year old female. Chief Complaint Patient presents with Acute Infected tattoo HPI: Here for possible skin infection from recent rt thigh tattoo Large area , rt thigh , got tattoo on wed Started feeling not well, some warmness , sick feeling from Fri, worse on Sat Mild discharge from rt thigh skin PMH: Patient Active Problem List Diagnosis Code JAMIL (generalized anxiety disorder) F41.1 Obesity, Class I, BMI 30.0-34.9 (see actual BMI) E66.9 Current Outpatient Medications Medication Sig Dispense Refill Fexofenadine HCl 180 MG Oral Tablet (Savaanh) Take by mouth 1 Tablet daily as needed (itching). 30 Tablet 11 Sertraline HCl 100 MG Oral Tablet (Zoloft) Take by mouth 1 Tablet in the morning. 90 Tablet 3 Ibuprofen 800 MG Oral Tablet (Motrin) Take 1 Tablet by mouth every 8 hours as needed for Pain, Mild. With food. 30 Tablet 0 Norgestim-Eth Estrad Triphasic 0.18/0.215/0.25 MG-25 MCG Oral Tablet (Nbm-Ws-Jcoscjnqd) Take 1 Tablet by mouth in the morning. 84 Tablet 1 Triamcinolone Acetonide 0.1 % External Cream (Aristocort) Apply topically to affected area 2 times a day. To affected area. 60 g 0 Sulfamethoxazole-Trimethoprim 800-160 MG Oral Tablet (Bactrim DS) Take 1 Tablet by mouth in the morning and 1 Tablet before bedtime. Do all this for 10 days. Until gone.. 20 Tablet 0 No current facility-administered medications for this visit. Past Medical History: Diagnosis Date Anxiety 10/13/2020 Obesity, Class I, BMI 30.0-34.9 (see actual BMI) 08/02/2022 Past Surgical History: Procedure Laterality Date EGD, FLEXIBLE, DIAGNOSTIC 05/24/2017 normal bx/ESOPHAGOGASTRODUODENOSCOPY (EGD), FLEXIBLE, TRANSORAL, DIAGNOSTIC performed by Abhay Garcia MD at ENDOSCOPY [facility] Review of patient's allergies indicates: Allergen Reactions Apple Juice Itching Pineapple Nausea/vomiting Naprosyn [Naproxen] Rash Zofran [Ondansetron] Rash Family History Problem Relation Age of Onset No Past Hx Mother Hypertension Father since age 28 Family Status Relation Status Mo Alive Fa Alive MGMA Alive MGFA Alive PGMA Alive PGFA Alive Social History Socioeconomic History Marital status: Spouse name: Not on file Number of children: Not on file Years of education: Not on file Highest education level: Not on file Occupational History 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 Other Topics Concern Service No Blood Transfusions No Caffeine Concern No Occupational Exposure No Hobby Hazards No Sleep Concern No Stress Concern No Weight Concern No Special Diet No Back Care No Exercise Yes Bike Helmet Not Asked Seat Belt Yes Self-Exams Yes Social History Narrative Not on file Social Determinants of Health Financial Resource Strain: Not on file Food Insecurity: No Food Insecurity (01/21/2023) Hunger Vital Sign Worried About Running Out of Food in the Last Year: Never true Ran Out of Food in the Last Year: Never true Transportation Needs: Not on file Physical Activity: Not on file Stress: Not on file Social Connections: Not on file Intimate Partner Violence: Not on file Housing Stability: Not on file Review of Systems Constitutional: Positive for chills and fatigue. Negative for activity change, appetite change, diaphoresis and unexpected weight change. Fever: ?. Skin: Positive for color change (rt thigh) and wound. Psychiatric/Behavioral: Negative for agitation and behavioral problems. Objective BP 120/64 | Pulse 96 | Temp 35.6 C (96.1 F) (Infrared ) | Resp 16 | Wt 114.3 kg (252 lb) | HnH877% | BMI 36.16 kg/m | BSA 2.38 m Physical Exam Constitutional: General: She is not in acute distress. Appearance: Normal appearance. She is obese. She is not ill-appearing, toxic- appearing or diaphoretic. HENT: Head: Normocephalic and atraumatic. Nose: Nose normal. Eyes: Extraocular Movements: Extraocular movements intact. Skin: Findings: Erythema (mild around tattoo) and lesion present. Neurological: Mental Status: She is alert and oriented to person, place, and time. Psychiatric: Behavior: Behavior normal. ASSESSMENT/PLAN: Cellulitis of right lower extremity (Primary) Tattoo reaction Other orders - Sulfamethoxazole-Trimethoprim 800-160 MG Oral Tablet (Bactrim DS); Take 1 Tablet by mouth in the morning and 1 Tablet before bedtime. Do all this for 10 days. Until gone.. Bactrim with probiotic Devonte Plasencia MD documented in this encounter Nursing Notes * Bindu Estrada LPN - 10/02/2023 11:52 AM EST Chief Complaint Patient presents with Acute Infected tattoo documented in this encounter Plan of Treatment Health Maintenance Due Date Last Done Comments Depression Screening 08/03/2021 08/03/2020, 07/22/2015 (Discussed) COVID-19 Vaccine ( season) 2023 09/27/2022, 09/14/2021, 09/15/2020, Additional history exists Pap Smear 07/20/2025 07/20/2022, 06/29/2018 DTaP,Tdap,and Td Vaccines (8 - Td or Tdap) 04/24/2029 04/24/2019, 04/10/2009, 12/18/2001, Additional history exists Hepatitis B Completed 09/30/1997, 01/26, 1996 GARDASIL-HPV IMMUNIZATION SERIES Completed 10/08/2008, 06/11/2008, 03/26/2008 MENINGOCOCCAL (MENACTRA/MENVEO) Completed 06/19/2013, 06/19/2013, 10/08/2008 Gonorrhea / Chlamydia Screen Discontinued 07/20/2022, 09/30/2020, 07/14/2020, Additional history exists Influenza Vaccine (FLU shot) Completed 06/30/2023, 06/23/2022, 05/17/2021, Additional history exists Pneumococcal Vaccine: Pediatrics (0 to 5 Years) and At-Risk Patients (6 to 64 Years) Aged Out No longer eligible based on patient's age to complete this topic documented as of this encounter Medical Devices Not on filedocumented as of this encounter Visit Diagnoses Diagnosis Cellulitis of right lower extremity- Primary Cellulitis and abscess of leg, except foot Tattoo reaction Foreign body granuloma of skin and subcutaneous tissue documented in this encounter Additional Health Concerns Infection Onset Date Last Indicated Resolved Time COVID-19 (confirmed) 02/16/2022 02/16/2022 documented as of this encounter Care Teams Shoe Handler Relationship Specialty Start Date End Date Mulu Mock DO [address] [place] [address] PCP - General Family Medicine 04/25/19 documented as of this encounter"
--- OUTSIDE RECORDS SUMMARY | 2023-10-06 07:18 | External Medical Summary | Summary of Care ---
Author Name Unknown Organization [facility] Address [address] [place] [address] Phone [phone] Care Team Providers Care Certified Medical Biller Name Role Phone MichaelMulu love Primary Care Provider [phone] Encounter Details Date Type Department Care Team (Late st Contact Info) Description 06/30/2023 10:00 AM EDT Immunization Ancillary Department, [facility] [address] [place] [address] [facility] [address] [place] [address] Arrived Allergies Active Allergy Reactions Criticality Noted Date Comments Apple Juice Itching 07/08/2019 Naproxen Rash Low 02/10/2022 Pineapple Nausea/vomiting 07/08/2019 Ondansetron Rash Low 02/10/2022 documented as of this encounter (statuses as of 06/30/2023) Medications Medication Sig Dispensed Refills Start Date End Date Status Fexofenadine HCl 180 MG Oral Tablet (Asvanah)Indications: Allergic dermatitis Take by mouth 1 Tablet daily as needed (itching). 30 Tablet 11 02/10/2022 Active Sertraline HCl 100 MG Oral Tablet (Zoloft)Indications:A nxiety Take by mouth 1 Tablet in the morning. 90 Tablet 3 04/22/2022 Active Ibuprofen 800 MG Oral Tablet (Motrin) Take 1 Tablet by mouth every 8 hours as needed for Pain, Mild. With food. 30 Tablet 0 01/27/2023 Active Norgestim-Eth Estrad Triphasic 0.18/0.215/0.25 MG-25 MCG Oral Tablet (Xrn-Ne-Viplvlnvd)Ind ications:Encounter for initial prescription of contraceptive pills Take 1 Tablet by mouth in the morning. 84 Tablet 1 02/09/2023 Active Triamcinolone Acetonide 0.1 % External Cream (Aristocort)Indicatio ns:Irritant contact dermatitis due to other chemical products Apply topically to affected area 2 times a day. To affected area. 60 g 0 06/07/2023 Active documented as of this encounter (statuses as of 06/30/2023) Active Problems Problem Noted Date Diagnosed Date Obesity, Class I, BMI 30.0-34.9 (see actual BMI) 08/02/2022 JAMIL (generalized anxiety disorder) 10/13/2020 documented as of this encounter (statuses as of 06/30/2023) Resolved Problems Problem Noted Date Diagnosed Date Resolved Date Food insecurity 05/09/2022 08/02/2022 Overview: Per [facility] Protocol Rh negative status during 11/28/2018 08/13/2020 Overview: Rhogam candidate Supervision of normal first , antepartum 11/22/2018 06/26/2019 ADVANCE DIRECTIVE INFORMATION 03/13/2006 08/13/2020 Overview: Not applicable (under age of 18) documented as of this encounter (statuses as of 06/30/2023) Immunizations Name Administration Dates Next Due COVID-19 mRNA, LNP-s, No Pre serve, 2-Dose Series ([employer]) 09/14/2021,09/15/2020,08/24/2020 Covid-19, Mrna, Lnp-s, Pf, B ivalent, 30 Mcg, IM, 12 yrs and above ([employer]) 09/27/2022 HPV Vaccine, 4-Valent 10/08/2008,06/11/2008,02/27 Meningococcal Conjugate Vacc ine (Menactra/Menveo) 06/19/2013,10/08/2008 PPD 03/04/2021, 9,04/20/2017,12/18 SEASONAL INFLUENZA, PF, 6 M & Above, IM , (FLULAVAL or FLUZONE) 06/30/2023,06/23/2022,05/17/2021,06/07,06/29/2018,05/19/2017 Seasonal Influenza, Quadriva lent, No Preserve, IM 05/19/2020 Seasonal Influenza, Split, I IV3, With Preserve, Inj 06/23/2014,07/14/2011 TDAP (age 10 and older)(Boostrix) 04/24/2019 TDAP (age 11 and older)(Adacel) 04/10/2009 Varicella Vaccine (Chicken Pox) 03/26/2008 documented as of this encounter Social History Tobacco Use Types Packs/Day Years Used Date Smoking Tobacco: Never Smokeless Tobacco: Never Alcohol Use Standard Drinks/Week Comments No 0 (1 standard drink = 0.6 oz pur e alcohol) twice a month per patient Hunger Vital Sign Answer Date Recorded Within the past 12 months, y ou worried that your food would run out before you got the money to buy more. Never true 01/22/20 23 Within the past 12 months, t he food you bought just didn't last and you didn't have money to get more. Never true 01/21/2023 Sex and Gender Information Value Date Recorded Sex Assigned at Female 03/14/2020 8:40 AM EDT Gender Identity Female 03/14/2020 8:40 AM EDT Sexual Orientation Straight 07/08/2019 12 :42 PM EST Job Start Date Occupation Industry Not on file Not on file Not on file documented as of this encounter Plan of Treatment Health Maintenance Due Date Last Done Comments Depression Screening 08/03/2021 08/03/2020, 07/22/2015 (Discussed) COVID-19 Vaccine ( season) 2023 09/27/2022, 09/14/2021, 09/15/2020, Additional history exists Influenza Vaccine (FLU shot) (#1) 2023 06/30/2023, 06/23/2022, 05/17/2021, Additional history exists Pap Smear 07/20/2025 07/20/2022, 06/29/2018 DTaP,Tdap,and Td Vaccines (8 - Td or Tdap) 04/24/2029 04/24/2019, 04/10/2009, 12/18/2001, Additional history exists Hepatitis B Completed 09/30/1997, 01/26, 1996 GARDASIL-HPV IMMUNIZATION SERIES Completed 10/08/2008, 06/11/2008, 03/26/2008 MENINGOCOCCAL (MENACTRA/MENVEO) Completed 06/19/2013, 06/19/2013, 10/08/2008 Gonorrhea / Chlamydia Screen Discontinued 07/20/2022, 09/30/2020, 07/14/2020, Additional history exists Pneumococcal Vaccine: Pediatrics (0 to 5 Years) and At-Risk Patients (6 to 64 Years) Aged Out No longer eligible based on patient's age to complete this topic documented as of this encounter Medical Devices Not on filedocumented as of this encounter Additional Health Concerns Infection Onset Date Last Indicated Resolved Time COVID-19 (confirmed) 02/16/2022 02/16/2022 documented as of this encounter Care Teams Certified Medical Biller Relationship Specialty Start Date End Date Mulu Mock DO [address] [place] [address] PCP - General Family Medicine 04/25/19 documented as of this encounter
--- OUTSIDE RECORDS SUMMARY | 2023-10-06 07:18 | External Medical Summary | Summary of Care ---
Author Name Unknown Organization [facility] Address [address] [place] [address] Phone [phone] Care Team Providers Care Community Service Organization Director Name Role Phone MichaelMulu love Primary Care Provider [phone] Reason for Visit * Reason Comments Acute Rash Encounter Details Date Type Department Care Team Description 06/07/2023 Telemedicine General Internal Medicine [facility] [address] [facility] [place] [address] Devin Gutierrez PA-C [address] [facility] [place] [address] Irritant contact dermatitis due to other chemical products* Allergies Active Allergy Reactions Severity Noted Date Comments Apple Juice Itching 07/08/2019 Naproxen Rash Low 02/10/2022 Pineapple Nausea/vomiting 07/08/2019 Ondansetron Rash Low 02/10/2022 documented as of this encounter (statuses as of 06/07/2023) Medications Medication Sig Dispensed Refills Start Date End Date Status Fexofenadine HCl 180 MG Oral Tablet (Savanah)Indications: Allergic dermatitis Take by mouth 1 Tablet [...] Estrad Triphasic 0.18/0.215/0.25 MG-25 MCG Oral Tablet (Uib-Fx-Hxgvnxcsc)Ind ications:Encounter for initial prescription of contraceptive pills Take 1 Tablet by mouth in the morning. 84 Tablet 1 02/09/2023 Active Triamcinolone Acetonide 0.1 % External Cream (Aristocort)Indicatio ns:Irritant contact dermatitis due to other chemical products Apply topically to affected area 2 times a day. To affected area. 60 g 0 06/07/2023 Active documented as of this encounter (statuses as of 06/07/2023) Active Problems Problem Noted Date Obesity, Class I, BMI 30.0-34.9 (see act ual BMI) 08/02/2022 JAMIL (generalized anxiety disorder) 10/13 documented as of this encounter (statuses as of 06/07/2023) Resolved Problems Problem Noted Date Resolved Date Food insecurity 05/09/2022 08/02/2022 Overview: Per [facility] Protocol Rh negative status during 11/28/2018 08/13/2020 Overview: Rhogam candidate [facility] 11/22/2018 06/26/2019 ADVANCE DIRECTIVE INFORMATION 03/13/2006 Overview: Not applicable (under age of 18) documented as of this encounter (statuses as of 06/07/2023) Immunizations Name Administration Dates Next Due COVID-19 mRNA, LNP-s, No Pre serve, 2-Dose Series ([employer]) 09/14/2021,09/15/2020,08/24/2020 Covid-19, Mrna, Lnp-s, Pf, B ivalent, 30 Mcg, IM, 12 yrs and above (Pfizer) 09/27/2022 DTaP Dipth/Tet/Acell Pertussis (Infanrix), Peds 12/18/2001,03/19/1998,06/19/1997,05/01,02/06/1997 HIB PRP-T, 4 dose (ActHib) 03/19/1998,,05/01/1997,02/06 HPV Vaccine, 4-Valent 10/08/2008,06/11/2008,02/27 Hepatitis B, 0-19 yrs 09/30/1997,02/06/1997,11/26 IPV - Polio Virus Vaccine (Inact) 12/18/2001,11/1996,02/06/1997 MMR - Measles/Mumps/Rubella Vaccine 12/18/2001,0 03/19/1998 Meningococcal Conjugate Vacc ine (Menactra/Menveo) 06/19/2013,10/08/2008 OPV - Polio Virus Vaccine (Oral) 03/19/1998 PPD 03/04/2021,,04/20/2017,12/18 SEASONAL INFLUENZA, PF, 6 M & Above, IM , (FLULAVAL or FLUZONE) 06/23/2022,05/17/2021,06/07/2019,06/29,05/19/2017 Seasonal Influenza, Quadriva lent, No Preserve, IM 05/19/2020 Seasonal Influenza, Split, I IV3, With Preserve, Inj 06/23/2014,07/14/2011 TDAP (age 10 and older)(Boostrix) 04/24/2019 TDAP (age 11 and older)(Adacel) 04/10/2009 Varicella Vaccine (Chicken Pox) 03/26/2008,12/15 documented as of this encounter Social History Tobacco Use Types Packs/Day Years Used Date Smoking Tobacco: Never Smokeless Tobacco: Never Alcohol Use Standard Drinks/Week Comments No 0 (1 standard drink = 0.6 oz pur e alcohol) twice a month per patient Alcohol Habits Answer Date Recorded How often do you have a drink containing alcohol ? Never 11/22/2018 How many drinks containing a lcohol do you have on a typical day when you are drinking? Not asked How often do you have six or more drinks on one occasion? Not asked Food Insecurity Answer Date Recorded Within the past 12 months, y ou worried that your food would run out before you got money to buy more. Never true 01/21/2023 Within the past 12 months, t he food you bought just didn't last and you didn't have money to get more. Never true 01/21/2023 Sex Assigned at Date Recorded Female 03/14/2020 8:40 AM E DT Job Start Date Occupation Industry Not on file Not on file Not on file documented as of this encounter Progress Notes * Devin Gutierrez PA-C - 06/07/2023 9:41 AM EDT Patient location: HOME. I was in a hospital or clinic location. After connecting through [employer],patient was verified with two unique identifiers. Patient (or authorized legal clearance representative) was then informed that this was a Telemedicine visit and being conducted confidentially over secure lines. Methods to assure confidentiality were taken. Patient acknowledged consent and understanding of pr ivacy and security of the Telemedicine visit. The patient agreed to participate. Subjective: Johana Contreras is a 27 year old female. Chief Complaint Patient presents with Acute Rash HPI: 27 y/o female with complaint of rash or hives on arm. Recently got a tattoo in area on Monday with rash showing up overnight. Blotchy, raised throughout tattoo site. PMH: Patient Active Problem List Diagnosis Code JAMIL (generalized anxiety disorder) F41.1 Obesity, Class I, BMI 30.0-34.9 (see actual BMI) E66.9 Current Outpatient Medications Medication Sig Dispense Refill Triamcinolone Acetonide 0.1 % External Cream (Aristocort) Apply topically to affected area 2 times a day. To affected area. 60 g 0 Fexofenadine HCl 180 MG Oral Tablet (Savanah) Take by mouth 1 Tablet daily as needed (itching). 30 Tablet 11 Sertraline HCl 100 MG Oral Tablet (Zoloft) Take by mouth 1 Tablet in the morning. 90 Tablet 3 Ibuprofen 800 MG Oral Tablet (Motrin) Take 1 Tablet by mouth every 8 hours as needed for Pain, Mild. With food. 30 Tablet 0 Norgestim-Eth Estrad Triphasic 0.18/0.215/0.25 MG-25 MCG Oral Tablet (Vow-Tr-Pgcrkyllq) Take 1 Tablet by mouth in the morning. 84 Tablet 1 No current facility-administered medications for this visit. Review of patient's allergies indicates: Allergen Reactions Apple Juice Itching Pineapple Nausea/vomiting Naprosyn [Naproxen] Rash Zofran [Ondansetron] Rash No other ROS reviewed other than mentioned in HPI. Objective: There were no vitals taken for this visit. Physical Exam Skin: Comments: Slight brown area appearing, blotchy around tattoo on forearm. Not well visualized. ASSESSMENT: Irritant contact dermatitis due to other chemical products (Primary) - Triamcinolone Acetonide 0.1 % External Cream (Aristocort); Apply topically to affected area 2 times a day. To affected area. Most likely above. Can use topical. Discussed steroids can lighten skin. Not sure how it may effectink of tattoo. Do not use longer than two weeks. Recommend office visit if worsens. Follow Up: Return if symptoms worsen or fail to improve. Devin Gutierrez PA-C documented in this encounter Plan of Treatment Health Maintenance Due Date Last Done Comments Depression Screening 08/03/2021 08/03/2020, 07/22/2015 (Discussed) COVID-19 Vaccine (2022- season) 2023 09/27/2022, 09/14/2021, 09/15/2020, Additional history exists Influenza Vaccine (FLU shot) (#1) 2023 06/23/2022, 05/17/2021, 05/19/2020, Additional history exists Pap Smear 07/20/2025 07/20/2022, [...] as of this encounter Visit Diagnoses Diagnosis Irritant contact dermatitis due to other chemical products- Primary documented in this encounter Additional Health Concerns Infection Onset Date Last Indicated Resolved Time COVID-19 (confirmed) 02/16/2022 02/16/2022 documented as of this encounter Care Teams Community Service Organization Director Relationship Specialty Start Date End Date Mulu Mock, DO [address] [place] [address] PCP - General Family Medicine 04/25/19 documented as of this encounter
--- OUTSIDE RECORDS SUMMARY | 2023-10-06 07:18 | External Medical Summary | Summary of Care ---
Author Name Unknown Organization [facility] Address [address] [place] [address] Phone [phone] Care Team Providers Care [employer] Supervisor Name Role Phone MichaelMulu love Primary Care Provider [phone] Reason for Visit * Reason Comments Acute Rash Encounter Details Date Type Department Care Team Description 06/07/2023 Telemedicine General Internal Medicine [facility] [address] [facility] [place] [address] Devin Gutierrez PA-C [address] [facility] [place] [address] Irritant contact dermatitis due to other chemical [...] Estrad Triphasic 0.18/0.215/0.25 MG-25 MCG Oral Tablet (Kby-Av-Rpkvwuagh)Ind ications:Encounter for initial prescription of contraceptive pills [...] Rhogam candidate [facility] 11/22/2018 06/26/2019 ADVANCE DIRECTIVE INFORMATION 03/13/2006 Overview: Not applicable (under age of 18) documented as of this encounter (statuses as of 06/07/2023) Immunizations Name Administration Dates Next Due COVID-19 mRNA, LNP-s, No Pre serve, 2-Dose Series ([email or web address]) 09/14/2021,09/15/2020,08/24/2020 Covid-19, Mrna, Lnp-s, Pf, B ivalent, [...] hospital or clinic location. After connecting through [employer],patient was verified with two unique identifiers. Patient (or authorized legal enrollment eligibility representative) was then informed that this was [...] Estrad Triphasic 0.18/0.215/0.25 MG-25 MCG Oral Tablet (Vtt-Kc-Nomsfqzmb) Take 1 Tablet by mouth in the [...] symptoms worsen or fail to improve. Devin Gutierrze PA-C documented in this encounter Plan of [...] documented as of this encounter Care Teams [employer] Operations Supervisor Relationship Specialty Start Date End Date Mulu Mock, DO [address] [place] [address] PCP - General Family Medicine 04/25/19 documented as of this encounter
--- OUTSIDE RECORDS SUMMARY | 2023-10-06 07:19 | External Medical Summary | Summary of Care ---
Author Name Unknown Organization [facility] Address [address] [place] [address] Phone [phone] Care Team Providers Care Cad Operator Name Role Phone Mulu Mock Primary Care Provider Encounter Details Date Type Department Care Team Description 04/24/2023 Orders Only Outcomes Research Department [address] [place], [place] [id number] Yara Maurer CHRA [employer] Research Other*[id number] Allergies Active Allergy Reactions Severity Noted Date Comments Apple Juice Itching 07/08/2019 Naproxen Rash Low 02/10/2022 Pineapple Nausea/vomiting 07/08/2019 Ondansetron Rash Low 02/10/2022 documented as of this encounter (statuses as of 04/24/2023) Medications Medication Sig Dispensed Refills Start Date End Date Status Fexofenadine HCl 180 MG Oral Tablet (Savanah)Indications:Al lergic dermatitis Take by mouth 1 Tablet daily as needed (itching). 30 Tablet 11 02/10/2022 Active Sertraline HCl 100 MG Oral Tablet (Zoloft)Indications:Anx iety Take by mouth 1 Tablet in the morning. 90 Tablet 3 04/22/2022 Active Ibuprofen 800 MG Oral Tablet (Motrin) Take 1 Tablet by mouth every 8 hours as needed for Pain, Mild. With food. 30 Tablet 0 01/27/2023 Active Norgestim-Eth Estrad Triphasic 0.18/0.215/0.25 MG-25 MCG Oral Tablet (Wsy-Xo-Ptndgeubm)Indic ations:Encounter for initial prescription of contraceptive pills Take 1 Tablet by mouth in the morning. 84 Tablet 1 02/09/2023 Active documented as of this encounter (statuses as of 04/24/2023) Active Problems Problem Noted Date Obesity, Class I, BMI 30.0-34.9 (see act ual BMI) 08/02/2022 JAMIL (generalized anxiety disorder) 10/13 documented as of this encounter (statuses as of 04/24/2023) Resolved Problems Problem Noted Date Resolved Date Food insecurity 05/09/2022 08/02/2022 Overview: Per [facility] Protocol Rh negative status during 11/28/2018 08/13/2020 Overview: Rhogam candidate Supervision of normal [facility] 11/22/2018 06/26/2019 ADVANCE DIRECTIVE INFORMATION 03/13/2006 Overview: Not applicable (under age of 18) documented as of this encounter (statuses as of 04/24/2023) Immunizations Name Administration Dates Next Due COVID-19 mRNA, LNP-s, No Pre serve, 2-Dose Series ([employer]) 09/14/2021,09/15/2020,08/24/2020 Covid-19, Mrna, Lnp-s, Pf, B ivalent, 30 Mcg, IM, 12 yrs and above ([employer]) 09/27/2022 HPV Vaccine, 4-Valent 10/08/2008,06/11/2008,02/27 Meningococcal Conjugate Vacc ine (Menactra/Menveo) 06/19/2013,10/08/2008 PPD 03/04/2021, 9,04/20/2017,12/18 Seasonal Influenza, PF, 6 mo ns & Above, IM , (Flulaval) 06/23/2022,05/17/2021,06/07/2019,06/29,05/19/2017 Seasonal Influenza, Quadriva lent, No Preserve, [...] as of this encounter Plan of Treatment Scheduled Orders Name Type Priority Associated Diagnoses Orde r Schedule MYCODE SUBSEQUENT ADULT Lab Routine MyCode Research Other*[id number] Every 6 Months for 2 Occurrences starting 04/24/2023 until 05/13/2024 Health Maintenance Due Date Last Done Comments Depression Screening, Annual for Pts 12 and Over 08/03/2021 08/03/2020, 07/22/2015 (Discussed) Influenza Vaccine (FLU shot) (#1) 2023 06/23/2022, 05/17/2021, 05/19/2020, Additional history exists Pap Smear 07/20/2025 07/20/2022, 06/29/2018 DTaP,Tdap,and Td Vaccines (8 - Td or Tdap) 04/24/2029 04/24/2019, 04/10/2009, 12/18/2001, Additional history exists Hepatitis B Completed 09/30/1997, 01/26, 1996 GARDASIL-HPV IMMUNIZATION SERIES Completed 10/08/2008, 06/11/2008, 03/26/2008 MENINGOCOCCAL (MENACTRA/MENVEO) Completed 06/19/2013, 06/19/2013, 10/08/2008 Hepatitis C Screening Completed 09/30/2020 , 09/30/2020, 09/30/2020 Gonorrhea / Chlamydia Screen Discontinued 07/20/2022, 09/30/2020, 07/14/2020, Additional history exists COVID-19 Vaccine Completed 09/27/2022, , 09/15/2020, Additional history exists Pneumococcal Vaccine: Pediatrics (0 to 5 Years) and At-Risk Patients (6 to 64 Years) Aged Out No longer eligible based on patient's age to complete this topic documented as of this encounter Medical Devices Not on filedocumented as of this encounter Visit Diagnoses Diagnosis My[employer] Research Other*[id number] documented in this encounter Additional Health Concerns Infection Onset Date Last Indicated Resolved Time COVID-19 (confirmed) 02/16/2022 02/16/2022 documented as of this encounter Care Teams Cad Operator Relationship Specialty Start Date End Date Mulu Mock, [address] [place] [address] PCP - General Family Medicine 04/25/19 documented as of this encounter
--- NOTE | 2023-10-06 08:06 | XRay Report ---
XR femur RT 2V routine CLINICAL HISTORY: Infection. Right femoral pain. COMPARISON: None FINDINGS: No fracture or lesion within the right femur is present. No bony erosion is identified. Al ignment of the right hip and right knee is anatomic. There is no right knee joint effusion. No soft t issue gas is evident by radiography. IMPRESSION: Unremarkable right femur radiographs. ACT 112: Negative or not required by law. Electronically signed by: Bradley Magdaleno M.D. 10/06/2023 8:05 AM
[2023-10-06] MEDS ORDERED: DOXYCYCLINE HYCLATE 100 MG CAP PO SCH (09:00)
[2023-10-06] MEDS: SODIUM CHLORIDE 0.9% 1,000 ML IV SCH (10:32)
--- NOTE | 2023-10-06 10:43 | Electrocardiogram Report ---
Test Reason : Blood Pressure : / mmHG Vent. Rate : 086 BPM Atrial Rate : 086 BPM P-R Int : 164 ms QRS Dur : 092 ms QT Int : 380 ms P-R-T Axes : 028 018 007 degrees QTc Int : 454 ms Normal sinus rhythm Poor R wave progression, consider anterior WA vs. lead placement vs. LVH Abnormal ECG No previous ECGs available Confirmed by Yeyo Floyd ([id number]) on 10/06/2023 10:43:16 AM Referred By: REFERRED SELF Confirmed By:Yeyo Floyd
[2023-10-06] MEDS: ADVANCED PROBIOTIC 1250 MG CAPSULE PO SCH (12:28)
[2023-10-06] MEDS: DAPTOmycin 525 MG in SYRINGE 0 ML IV SCH (12:28)
--- NOTE | 2023-10-06 15:22 | Hospitalist Progress Note ---
Date of Service October 06, 2023 Assessment & Plan (1) Sepsis: Plan: Secondary to right thigh cellulitis following tattoo placement Failed outpatient treatment CT lower extremity: No abscess noted Blood cultures: Pending Continue daptomycin plus cefepime IV day #1 Clinically improving, monitor closely Wound care nurse consult Situational hypertension -BP improved migraine, recent migraine attack currently resolved at the ER anxiety disorder, stable off maintenance medications DVT prophylaxis SCDs Re: Scant bleeding from right thigh swelling Full code plan of care discussed with patient in detail and at length all questions answered she is understanding, agreeable, comfortable with the plan of care Admission and Anticipated Discharge Date Admission Date: October 05, 2023 Subjective Follow-up for right thigh cellulitis, etc. Seen with STACY Ordoñez at bedside throughout whole encounter Patient seen resting in bed, comfortable, not in distress, good spirits States she feels improved compared to yesterday Pain over the left thigh wound area improving Knee pain also improving No fevers or chills no chest pain, dyspnea, palpitations, dizziness Review of Systems Review of Systems: all noted and negative except for above Physical Exam Physical Exam: General- oriented x 3, not in distress, speaks in sentences with no effort or accessory muscle use Eyes- anicteric Neck- no JVD Lungs- clear breath sounds bilaterally, no rales/wheezes Heart- normal rate, regular rhythm; no murmurs Abdomen- normal bowel sounds, nondistended, soft, nontender Extremities- no pretibial edema, no calf tenderness Neuro- alert, oriented x 3; no gross focal neurologic deficits Skin- warm & dry Results & Data Results & Data Vital Signs (Past 12 Hours) Vital Signs Temp Pulse Pulse Resp BP Pulse Ox O2 Del Method 10/06/23 15:03 36.6 C 89 20 131/83 98 Room Air 10/06/23 14:59 85 10/06/23 11:16 36.8 C 70 18 125/83 97 Room Air 10/06/23 07:41 36.8 C 85 20 117/73 98 Room Air 10/06/23 07:23 82 all noted and reviewed including below
[2023-10-06] MEDS: ACETAMINOPHEN 325 MG TAB PO PRN (17:11)
--- NOTE | 2023-10-07 16:56 | Hospitalist Progress Note ---
Date of Service October 07, 2023 Assessment & Plan (1) Sepsis: Plan: Secondary to right thigh cellulitis following tattoo placement Failed outpatient treatment CT lower extremity: No abscess noted Blood cultures: Negative so Continue daptomycin plus cefepime IV day #2 Clinically improving, monitor closely Situational hypertension -BP improved migraine, recent migraine attack currently resolved at the ER anxiety disorder, stable off maintenance medications DVT prophylaxis SCDs Re: Scant bleeding from right thigh swelling Full code plan of care discussed with patient in detail and at length all questions answered she is understanding, agreeable, comfortable with the plan of care Admission and Anticipated Discharge Date Admission Date: October 05, 2023 Subjective Follow-up for cellulitis, etc. Seen resting in bed, comfortable not in distress Seen with STACY Lopez at bedside throughout whole encounter States she continues to feel improved Less pain, tenderness on the right thigh, wound region no fevers or chills no Review of Systems Review of Systems: all noted and negative except for above Physical Exam Physical Exam: General- oriented x 3, not in distress, speaks in sentences with no effort or accessory muscle use Eyes- anicteric Neck- no JVD Lungs- clear breath sounds bilaterally, no rales/wheezes Heart- normal rate, regular rhythm; no murmurs Abdomen- normal bowel sounds, nondistended, soft, no tenderness Extremities- no pretibial edema, no calf tenderness Right thigh: No active drainage or bleeding noted No erythema, mild warmth, mild tenderness Neuro- alert, oriented x 3; no gross focal neurologic deficits Skin- warm & dry Results & Data Results & Data Vital Signs (Past 12 Hours) Vital Signs Temp Pulse Pulse Resp BP Pulse Ox O2 Del Method 10/07/23 15:26 36.6 C 74 18 136/91 97 Room Air 10/07/23 11:35 36.5 C 74 18 130/92 98 Room Air 10/07/23 07:57 59 L 10/07/23 07:43 36.5 C 54 L 18 145/90 H 97 Room Air all noted and reviewed including below
--- NOTE | 2023-10-08 10:19 | Hospitalist Progress Note ---
Date of Service October 08, 2023 Assessment & Plan (1) Sepsis: Plan: Secondary to right thigh cellulitis following tattoo placement Failed outpatient treatment CT lower extremity: No abscess noted Blood cultures: Negative x 48 hours Patient placed on daptomycin plus cefepime IV x 3 days Clinically improved -pain resolved, afebrile Discharge on: Doxycycline 1 mg p.o. twice daily Augmentin 875 mg twice daily -- X 7 more days to complete 10-day course Advised to take probiotics and yogurt daily, hydrate well Follow-up with PCP in 1 week Situational hypertension -BP improved -Monitor closely as an outpatient migraine, recent migraine attack -Resolved at the ER anxiety disorder, stable off maintenance medications plan of care discussed with patient in detail and at length all questions answered she is understanding, agreeable, comfortable with the plan of care Admission and Anticipated Discharge Date Admission Date: October 05, 2023 Subjective Follow-up for right thigh cellulitis, infected wounds, etc. Seen resting in bed, comfortable, not in distress States she feels fine overall, better since admission .Pain on the right thigh resolved No fevers or chills No other new symptoms States she is ready for discharge today Review of Systems Review of Systems: all noted and negative except for above Physical Exam Physical Exam: General- oriented x 3, not in distress, speaks in sentences with no effort or accessory muscle use Eyes- anicteric Neck- no JVD Lungs- clear breath sounds bilaterally, no crackles Heart- normal rate, regular rhythm; no murmurs Abdomen- normal bowel sounds, nondistended, soft, nontender Extremities- no pretibial edema, no calf tenderness Right thigh: Scabbed wounds, no small open areas but no discharge, signs of healing noted No erythema, warmth, tenderness Neuro- alert, oriented x 3; no gross focal neurologic deficits Skin- warm & dry Results & Data Results & Data Vital Signs (Past 12 Hours) Vital Signs Temp Pulse Resp BP Pulse Ox O2 Del Method 10/08/23 07:39 36.6 C 67 19 126/75 97 Room Air 10/07/23 22:30 37.0 C 70 18 126/78 98 Room Air all noted and reviewed including below
--- NOTE | 2023-10-08 10:21 | Discharge Summary ---
Discharge Summary Date of Service October 08, 2023 Notes For Next Care Provider Medication Changes From Visit Doxycycline 100 g p.o. twice daily Augmentin 870 mg p.o. twice daily -- Both x 1 week Stop Bactrim Admission HPI Per Admitting Provider History obtained from patient and records. Medical history significant for migraine, anxiety disorder, obesity. Last week patient got a tattoo on her right thigh. A few days later she noted 'icky' blood-tinged drainage and increased swelling on right thigh. Tachycardia noted at home. No chest pain, no SOB. Patient seen at PCPs office 3 days ago. Bactrim started for RLE cellulitis secondary to tattoo reaction. Worsening swelling despite compliance with medications. Pain extending to the right knee. Transient migraine attack associated with nausea and emesis without abdominal pain. Patient consulted ER. Highest SBP of 160s documented at the ER. IV vancomycin administered at the ER. 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 Admission Exam Per Admitting Provider GENERAL: Comfortable, pleasant, obese, no respiratory distress SKIN: Normal color, warm HEENT: [place] palpebral conjunctivae, no ptosis, moist buccal mucosa NECK : Supple, short neck, no tenderness CHEST : CTA, no tenderness HEART : RRR, no obvious murmurs ABDOMEN: Some distention, nontender EXTREMITIES : Tender swelling right thigh with yellow crusting over tattoo image, no other conspicuous deformities noted NEUROLOGIC : Coherent, no facial asymmetry, no other gross focality Principal Dx & Hospital Course #1 = Principal Diagnosis (1) Sepsis: Secondary to right thigh cellulitis following tattoo placement Failed outpatient treatment CT lower extremity: No abscess noted Blood cultures: Negative x 48 hours Patient placed on daptomycin plus cefepime IV x 3 days Clinically improved -pain resolved, afebrile Discharge on: Doxycycline 1 mg p.o. twice daily Augmentin 875 mg twice daily -- X 7 more days to complete 10-day course Advised to take probiotics and yogurt daily, hydrate well Follow-up with PCP in 1 week Situational hypertension -BP improved -Monitor closely as an outpatient migraine, recent migraine attack -Resolved at the ER anxiety disorder, stable off maintenance medications plan of care discussed with patient in detail and at length all questions answered she is understanding, agreeable, comfortable with the plan of care Discharge Exam General- oriented x 3, not in distress, speaks in sentences with no effort or accessory muscle use Eyes- anicteric Neck- no JVD Lungs- clear breath sounds bilaterally, no crackles Heart- normal rate, regular rhythm; no murmurs Abdomen- normal bowel sounds, nondistended, soft, nontender Extremities- no pretibial edema, no calf tenderness Right thigh: Scabbed wounds, no small open areas but no discharge, signs of healing noted No erythema, warmth, tenderness Neuro- alert, oriented x 3; no gross focal neurologic deficits Skin- warm & dry Updated Medication List Medication Instructions Recorded Confirmed Type breast pump #1 ea 06/28/19 Rx norgestimate 0.18 mg/0.215 mg/0.25 1 tab PO DAILY 10/05/23 10/05/23 History mg-ethinyl estradiol 25 mcg tablet ([id number]) amoxicillin 875 mg-potassium 1 tab PO BID 7 days #14 tabs 10/08/23 Rx clavulanate 125 mg tablet doxycycline hyclate 100 mg capsule 100 mg PO BID 7 days #14 caps 10/08/23 Rx Hospital Stay Data Consultations 10/05/23 22:04 ED Decision to Admit Stat Diagnostic Imagining Performed Laboratory Results WBC 9.60 K/ul (4.8-10.8) 10/06/23 05:56 RBC 3.85 M/uL (4.20-5.40) L 10/06/23 05:56 Hgb 10.7 g/dl (12.0-16.0) L 10/06/23 05:56 Hct 33.0 % (37.0-47.0) L 10/06/23 05:56 MCV 85.7 fL (80.0-100.0) 10/06/23 05:56 MCH 27.8 pg (25.0-34.0) 10/06/23 05:56 MCHC 32.4 g/dL (32.0-36.0) 10/06/23 05:56 RDW Std Deviation 44.1 fL (36.4-46.3) 10/06/23 05:56 RDW Coeff of Kory 14.1 % (11.5-14.5) 10/06/23 05:56 Plt Count 330 K/uL (130-400) 10/06/23 05:56 MPV 9.4 fL (9.4-12.4) 10/06/23 05:56 Immature Gran % (Auto) 0.4 % 10/06/23 05:56 Neut % (Auto) 63.1 % 10/06/23 05:56 Lymph % (Auto) 27.5 % 10/06/23 05:56 [place] % (Auto) 7.2 % 10/06/23 05:56 Eos % (Auto) 1.5 % 10/06/23 05:56 Baso % (Auto) 0.3 % 10/06/23 05:56 Neut # (Auto) 6.06 K/uL (1.40-6.50) 10/06/23 05:56 Lymph # (Auto) 2.64 K/uL (1.20-3.40) 10/06/23 05:56 [place] # (Auto) 0.69 K/uL (0.11-0.59) H 10/06/23 05:56 Eos # (Auto) 0.14 K/uL (0.00-0.50) 10/06/23 05:56 Baso # (Auto) 0.03 K/uL (0.00-0.20) 10/06/23 05:56 Immature Gran # (Auto) 0.04 K/uL (0.01-0.20) 10/06/23 05:56 Sodium 136 mmol/L (136-145) 10/06/23 05:56 Potassium 3.8 mmol/L (3.5-5.1) 10/06/23 05:56 Chloride 107 mmol/L (98-107) 10/06/23 05:56 Carbon Dioxide 23 mmol/L (21-32) 10/06/23 05:56 Anion Gap 6 (3-11) 10/06/23 05:56 BUN 10 mg/dl (6-23) 10/06/23 05:56 Creatinine 0.56 mg/dl (0.6-1.2) L 10/06/23 05:56 Est Cr Clr Drug Dosing 207.5 ml/min 10/06/23 05:56 Est GFR ( Amer) 149.1 ml/min 10/06/23 05:56 Est GFR (Non-Af Amer) 128.7 ml/min 10/06/23 05:56 BUN/Creatinine Ratio 17.9 (10-20) 10/06/23 05:56 Glucose 95 mg/dl (70-99(Fasting)) 10/06/23 05:56 Estimat Average Glucose 114 mg/dl 10/05/23 19:20 Hemoglobin A1c 5.6 % (4.5-5.6) 10/05/23 19:20 Lactate 0.8 mmol/L (0.4-2.0) 10/05/23 19:20 Calcium 8.2 mg/dl (8.6-10.3) L 10/06/23 05:56 Total Bilirubin 0.3 mg/dl (0.2-1.0) 10/05/23 19:20 AST 18 U/L (13-39) 10/05/23 19:20 ALT 19 U/L (7-52) 10/05/23 19:20 Alkaline Phosphatase 85 U/L (34-104) 10/05/23 19:20 Total Protein 7.6 gm/dl (6.0-8.3) 10/05/23 19:20 Albumin 4.0 gm/dl (3.4-5.0) 10/05/23 19:20 Globulin 3.6 gm/dl (2.5-4.0) 10/05/23 19:20 Albumin/Globulin Ratio 1.1 (0.9-2) 10/05/23 19:20 Lipase 5 U/L (11-82) L 10/05/23 19:20 Procalcitonin < 0.02 ng/ml (0-0.5) 10/05/23 19:20 HCG, Qual Negative (Negative) 10/05/23 19:20 Impressions Femur X-Ray 10/05/23 18:43 XR femur RT 2V routine CLINICAL HISTORY: Infection. Right femoral pain. COMPARISON: None FINDINGS: No fracture or lesion within the right femur is present. No bony erosion is identified. Alignment of the right hip and right knee is anatomic. There is no right knee joint effusion. No soft tissue gas is evident by radiography. IMPRESSION: Unremarkable right femur radiographs. ACT 112: Negative or not required by law. Electronically signed by: Bradley Magdaleno M.D. 10/06/2023 8:05 AM Knee X-Ray 10/05/23 18:43 XR knee RT 3V HISTORY: 27 years-old Female Knee pain, infection acute right knee pain COMPARISON: Femur radiographs of same day TECHNIQUE: 3 views of the right knee FINDINGS: No acute fracture, dislocation, osseous erosion or large joint effusion. IMPRESSION: No acute osseous abnormality. ACT 112: Negative or not required by law. The above report was generated using voice recognition software. It may contain grammatical, syntax or spelling errors. Electronically signed by: Bhanu Arias M.D. 10/06/2023 6:[address] 10/05/23 22:58 Exam(s): CT EXTREMITY RIGHT LOWER With Contrast IV Amt: 100 ML OPTIRAY 320 EXAM: CT Right Lower Extremity With Intravenous Contrast CLINICAL HISTORY: Reason for exam: swelling ro abscess. TECHNIQUE: Axial computed tomography images of the right lower extremity with intravenous contrast. CTDI is 20.38 mGy and DLP is 1239.18 mGy-cm. Automated exposure control was utilized for the study. A dose lowering technique was utilized adhering to the principles of ALARA. CONTRAST: Patient received 100 ML OPTIRAY 320 of IV contrast COMPARISON: None. FINDINGS: Bones/joints: Unremarkable. No acute fracture. No dislocation. Soft tissues: Mild skin thickening and subcutaneous fat stranding along the lateral aspect of the right thigh without discrete abscess. IMPRESSION: Mild skin thickening and subcutaneous fat stranding along the lateral aspect of the right thigh without discrete abscess. This may represent cellulitis. Clinical correlation is recommended. Electronically signed by: David Estevez MD 10/06/23 01:22 AM Venous Doppler Study 10/05/23 22:59 Exam(s): US VENOUS RIGHT LOWER EXTREMITY EXAM: US Duplex Right Lower Extremity Veins CLINICAL HISTORY: swelling. TECHNIQUE: Real-time duplex ultrasound scan of the right lower extremity veins integrating B-mode two-dimensional vascular structure, Doppler spectral analysis, color flow Doppler imaging and compression. COMPARISON: No relevant prior studies available. FINDINGS: Deep veins: Unremarkable. No DVT in the visualized common femoral, femoral, proximal deep femoral or popliteal veins. The veins demonstrate normal color flow, are normally compressible, with normal phasic flow and/or augmentation response. Superficial veins: Unremarkable. No thrombus in the visualized great saphenous vein. Soft tissues: No acute findings. No popliteal cyst. IMPRESSION: No deep vein thrombosis of the right lower extremity. Electronically signed by: Shirlene Marrero MD 10/06/23 05:39 AM 10/05/23 22:58 CT femur RT w con Stat 10/05/23 22:59 US venous doppler LE RT Stat Pending Results Patient Have Any Pending Studies at Discharge: No Discharge Instructions Given to Patient (Per Discharging Provider) PLEASE REFER TO YOUR NEW MEDICATION LIST AND FOLLOW INSTRUCTIONS CAREFULLY. YOUR NEW MEDICATIONS INCLUDE: Augmentin, Doxycycline- antibiotics for cellulitis, infected wound Please take a probiotic and eat yogurt daily for at least 1 month. Drink plenty of water. May gently wash the affected areas with soap and water daily. Keep the area dry and covered with dressings daily. PLEASE CALL YOUR PRIMARY CARE PHYSICIAN OR RETURN TO THE ER IF WITH WORSENING OF SYMPTOMS, INCLUDING fever/chills, worsening pain, redness, discharge over the affected area, diarrhea, etc FOLLOW UP WITH PRIMARY CARE PHYSICIAN IN 1 WEEK. THE CLINIC WILL BE CALLING YOU SOON FOR THE APPOINTMENT. Total Time Total Time Spent Total Time Spent (In Minutes): >30 mins
== END 2023-10-08 11:28 | disposition home or self-care (01) | DRG 872 ==
LOC: ED 18:34 → 2N 23:00 → SUATTDRO 23:00 → 2N 23:52

== ENCOUNTER 2025-08-21 05:31 | Inpatient (IN) ==
[2025-08-21] MEDS ORDERED: OXYTOCIN 30 UNITS/NSS 30 UNITS/500 ML BAG IV PRN ×4 (06:20→13:54)
[2025-08-21] MEDS ORDERED: LACTATED RINGER'S 1,000 ML IV PRN (06:20)
[2025-08-21] MEDS ORDERED: LIDOCAINE 1% LOCAL 20 ML VIAL INFIL PRN ×2 (06:20→07:39)
[2025-08-21 06:54] LABS: Hematocrit (blood only) 36.5 % (37.0-47.0); Hemoglobin 12.6 g/dL (12.0-16.0); Mean Corpuscular Hemoglobin 28.8 pg (25.0-34.0); Mean Corpuscular Volume 83.3 fL (80.0-100.0); Platelet Count 312 K/uL (130-400); RDW Standard Deviation 47.2 fL (36.4-46.3); Red Blood Count 4.38 M/uL (4.20-5.40); White Blood Count 9.02 K/ul (4.8-10.8)
[2025-08-21] MEDS ORDERED: ACETAMINOPHEN 500 MG TAB PO PRN (07:39)
[2025-08-21] MEDS ORDERED: CALCIUM CARBONATE 500 MG CHEWABLE TAB PO PRN (07:39)
--- NOTE | 2025-08-21 07:47 | Obstetrical Progress Note ---
Date of Service August 21, 2025 Assessment & Plan Admission and Anticipated Discharge Date Admission Date: August 21, 2025 Subjective Patient was admitted at 38 weeks 1 day gestation chronic rupture of membranes. Blood type is O-. Vaginal beta strep negative. Patient was seen prior to to admission for evaluation of below biophysical profile and a nonreactive stress test. She was admitted for observation on 08/20/2025 placed on the monitor she had an excellent reactive stress test. She was given some fluids. She had a repeat of her biophysical profile. At this time she scored an 8 out of 8. She was subsequently discharged. Called about 4 AM the day of admission said she thought her water broke. Came to maternity was evaluated and found to have jessenia rupture membranes. Her initial exam cervix was 90% effaced firm 1 to 2 cm -2 station vertex presentation with an estimated weight of 7 to 8 pounds. Results & Data Vital Signs (Past 12 Hours) Vital Signs Temp Pulse Resp BP O2 Del Method 08/21/25 07:28 102 H 122/77 08/21/25 05:57 36.7 C 96 H 18 140/82 08/21/25 05:51 36.6 C 18 Room Air
[2025-08-21] MEDS: miSOPROStol 50 MCG TAB PO ONE (08:05)
--- NOTE | 2025-08-21 08:38 | History & Physical Report ---
Date of Service August 21, 2025 Assessment & Plan (1) Spontaneous rupture of amniotic membranes: Plan: 29-year-old -0-0-1 at 38 weeks and 2 days of gestation presenting today with spontaneous rupture of membranes at term, Vital signs stable afebrile, GBS negative, heart rate reassuring, Received first dose of p.o. Cytotec at 8 AM, Plan to continue to monitor closely and start IV oxytocin per protocol after 4 hours, epidural for pain when patient desires, Patient agrees with the plan and all questions were answered. (2) Leakage, amniotic fluid: (3) with 38 completed weeks gestation: Admission and Anticipated Discharge Date Admission Date: August 21, 2025 History of Present Illness Primary Care Provider: Mulu Mock, Patient is a 29-year-old -0-0-1 at 38 weeks and 2 days of gestation who was admitted for spontaneous rupture of membranes at 4 AM this morning. She states she had a big gush of clear fluids and has been leaking since then. She has irregular mild contractions and a painful yet. She was admitted by Dr. Wagner this morning and given 1 dose of p.o. Cytotec for induction of labor at term. she denies vaginal bleeding, fever or chills, abdominal pain. She reports good movements. She was here yesterday for nonreactive NST from office and borderline BPP. Her repeat NST was reactive here and the BPP was 10 out of 10. Patient states that baby started moving after she came to the hospital and has been moving normally since then. Her has been uncomplicated except she had anemia for which she received IV iron. GBS is negative. Allergies Allergy/AdvReac Type Severity Reaction Status Date / Time pineapple Allergy Itching Verified 08/21/25 05:50 adhesive tape AdvReac Unknown Verified 08/21/25 05:50 apple AdvReac Unknown Verified 08/21/25 05:50 ondansetron [From Zofran] AdvReac Rash Verified 08/21/25 05:50 pumpkin AdvReac Rash Verified 08/21/25 05:50 Home Medications Medication Instructions Recorded Confirmed Type breast pump #1 ea 06/28/19 Rx [id number] 1 mg 1 tab PO DAILY 08/21/25 08/21/25 History tablet Patient History Medical History (Updated 08/21/25 @ 08:37 by Katy Gatica MD) with 38 completed weeks gestation No pertinent past medical history Surgical History No pertinent past surgical history Social History Smoking Status: Never smoker Second Hand Exposure: Yes; Do You Dip or Chew Tobacco: No; Hx Alcohol Use: No Hx Substance Use: No Preferred Language: Latvian Communication Ability: Effective 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 Wagner, uncomplicated [employer] History patient denies any history of STDs, no history of chlamydia, gonorrhea, herpes Review of Systems as per Subjective / HPI Physical Exam Constitutional: WD/WN, vitals as above well developed, well nourished and comfortable Gastrointestinal (Abdomen): normal bowel sounds, soft, nontender, no hepatosplenomegaly Genitourinary: normal external appearance OB Exam Abdomen: + vertex Manual OB Exam: + cervical dilation 3 cm, + cervical effacement 70% and + stati on -2 OB Exam Monitor Tracing: + external uterine monitor used and + category I bedside ultrasound confirmed allergic presentation, placenta anterior, heart rate 140s Results & Data Vital Signs (Past 12 Hours) Vital Signs Temp Pulse Resp BP O2 Del Method 08/21/25 07:28 102 H 122/77 08/21/25 05:57 36.7 C 96 H 18 140/82 08/21/25 05:51 36.6 C 18 Room Air Laboratory Results Lab Results 08/21/25 Range/Units 06:34 WBC 9.02 (4.8-10.8) K/ul RBC 4.38 (4.20-5.40) M/uL Hgb 12.6 (12.0-16.0) g/dL Hct 36.5 L (37.0-47.0) % MCV 83.3 (80.0-100.0) fL MCH 28.8 (25.0-34.0) pg MCHC 34.5 (32.0-36.0) g/dL RDW Std Deviation 47.2 H (36.4-46.3) fL RDW Coeff of Kory 15.6 H (11.5-14.5) % Plt Count 312 (130-400) K/uL MPV 9.9 (9.4-12.4) fL Blood Type O Negative Antibody Screen NEGATIVE
[2025-08-21] MEDS: LACTATED RINGER'S 1,000 ML IV PRN (10:57)
--- NOTE | 2025-08-21 11:21 | Anesthesiology Consultation ---
Date of Service August 21, 2025 Assessment & Plan Chart Review Chart Review: Acceptable Risk for Surgery, Patient NOT seen in Pre Admission Testing and Acceptable Risk for Labor Epidural Consults Requested none ASA ASA3 Proposed Anesthesia Anesthesia Type: Labor Epidural and CSE History Height/Weight Height: 5 ft 10 in Weight: 125.645 kg Allergies Allergy/AdvReac Type Severity Reaction Status Date / Time pineapple Allergy Itching Verified 08/21/25 05:50 adhesive tape AdvReac Unknown Verified 08/21/25 05:50 apple AdvReac Unknown Verified 08/21/25 05:50 ondansetron [From Zofran] AdvReac Rash Verified 08/21/25 05:50 pumpkin AdvReac Rash Verified 08/21/25 05:50 Medications Home Medications Medication Instructions Recorded Confirmed Last Taken breast pump #1 ea 06/28/19 Unknown [id number] 1 mg 1 tab PO DAILY 08/21/25 08/21/25 08/20/25 tablet Active Medications Generic Name Dose Route Start Last Admin Trade Name Freq PRN Reason Stop Dose Admin Lactated Ringer's 1,000 mls @ 125 mls/hr 08/21/25 07:39 08/21/25 10:57 Lr IV 08/23/25 07:38 999 mls/hr .Q8H PRN Administration L&D Protocol Protocol Past Medical History Medical History with 38 completed weeks gestation No pertinent past medical history morbid obesity GERD Anemia Hx/o bronchitis Hx/o mononucleosis Exercise / Class Metabolic Activity II 4-5 Yardwork/Stairs/Walk up hill Past Surgical History Surgical History No pertinent past surgical history Past Anesthesia History No Hx of Anesthesia Complications and No Family Hx of Anesthesia Complications History of PONV No Hx of PONV and No Hx of Motion Sickness Social History Smoking Status: Never smoker Do You Dip or Chew Tobacco: No Hx Alcohol Use: No Hx Substance Use: No substance use type: does not use Physical Exam Vital Signs Last Vital Signs Temp 36.7 C 08/21/25 05:57 Pulse 102 H 08/21/25 07:28 Resp 18 08/21/25 05:57 BP 122/77 08/21/25 07:28 O2 Del Method Room Air 08/21/25 05:51 Testing Laboratory Results 08/21/25 06:34 Blood Type O Negative 08/21/25 06:34 Antibody Screen NEGATIVE 08/21/25 06:34
--- NOTE | 2025-08-21 11:23 | Communication Note ---
Date of Service: August 21, 2025 BERNADETTE (10/05/2023) NSR @ 86
[2025-08-21] MEDS ORDERED: NALBUPHINE HCL INJ 10 MG/ML AMP IV PRN (12:34)
[2025-08-21] MEDS ORDERED: SODIUM CHLORIDE 0.9% PF INJ 10 ML VIAL EPI PRN (12:34)
[2025-08-21] MEDS ORDERED: diphenhydrAMINE 50 MG/ML VIAL IV PRN (12:34)
[2025-08-21] MEDS ORDERED: NALOXONE HCL 0.4 MG/1 ML VIAL/CARP IV PRN (12:34)
[2025-08-21] MEDS ORDERED: fentANYL 2 MCG/ML BUPIVacaine 0.125%-NSS 100ML BAG EPI PRN (12:34)
[2025-08-21] MEDS ORDERED: BUPIVACAINE 0.25% PF 30 ML VIAL EPI PRN (12:34)
[2025-08-21] MEDS ORDERED: PROMETHAZINE 6.25 MG/50.25 ML BAG IV PRN (12:34)
[2025-08-21] MEDS: BUPIVACAINE 0.25% PF 30 ML VIAL ONE (12:34)
[2025-08-21] MEDS ORDERED: LIDOCAINE 2% MPF LOCAL 5 ML VIAL EPI PRN (12:34)
[2025-08-21] MEDS ORDERED: NALOXONE HCL 1 MG in SODIUM CHLORIDE 0.9% 1,000 ML IV PRN (12:34)
[2025-08-21] MEDS ORDERED: ROPIVACAINE 0.5% PF 5 MG/ML 20 ML VIAL EPI PRN (12:34)
[2025-08-21] MEDS: LIDOCAINE 2%/EPINEPHRINE 1:200,000 20 ML PF ONE (12:34)
[2025-08-21] MEDS: fentANYL 2 MCG/ML BUPIVacaine 0.125%-NSS 100ML BAG ONE (12:37)
[2025-08-21] MEDS: SODIUM CHLORIDE 0.9% PF INJ 10 ML VIAL ONE (13:37)
[2025-08-21] MEDS: LIDOCAINE 2%/EPINEPHRINE 1:200,000 20 ML PF EPI STA (13:38)
[2025-08-21] MEDS: SODIUM CHLORIDE 0.9% PF INJ 10 ML VIAL EPI STA (13:38)
[2025-08-21] MEDS: BUPIVACAINE 0.25% PF 30 ML VIAL EPI STA (13:38)
[2025-08-21] MEDS: OXYTOCIN 30 UNITS/NSS 30 UNITS/500 ML BAG IV PRN (13:40)
[2025-08-21] MEDS ORDERED: HYDROCORTISONE ACETATE 25 MG SUPP PR PRN (13:54)
[2025-08-21] MEDS ORDERED: ACETAMINOPHEN 325 MG TAB PO PRN (13:54)
[2025-08-21] MEDS ORDERED: DIPHTHER/TETAN/PERTUS Vaccine (Tdap, Adol/Adult) 0.5mL IM ONE (13:54)
[2025-08-21] MEDS ORDERED: MEASLES, MUMPS & RUBELLA VIRUS VACCINE (MMR) 0.5ML VIAL SQ ONE (13:54)
[2025-08-21] MEDS ORDERED: METHYLERGONOVINE MALEATE 0.2 MG TAB PO SCH (13:55)
--- NOTE | 2025-08-21 13:59 | Delivery Summary ---
Vaginal Delivery Summary Date of Service August 21, 2025 Vaginal Delivery Summary Patient was found to be fully dilated and desired to push. She pushed with 3 contractions and delivered the head and then shoulders with minimal traction. The baby was handed off to the mother. The cord was clampedx2 and cut at 1 minute. The vagina and perineum were checked and found to have partial 3rd degree perineal laceration. Rectal exam was done and noted some sphincter tone. The gloves were changes. External sphincter muscles were held with Allis clamps brought to the midline and repaired with 2-0 Vicryl with [id number] stitches x 3. Perineal body muscles around the sphincter were also repaired with 2-0 Vicryl to support the sphincter. Rectal exam was repeated and good sphincter tone and integrity was noted. The gloves were changed and suture was changed to new one. The vaginal mucosa was repaired with 2/0 vicryl and skin on subcuticular fashion. The placenta was delivered spontaneously as intact and complete. The uterus was explored and found to be empty. vagina mucosa was oozing from the repair, more sutures were placed with 2-0 Vicryl. And then Ab powder was applied to the mucosa with pressure and it was hemostatic. Patient was given 2 g of IV cefazolin during the procedure. QBL [id number] ml. The fundus was firm. The baby was a viable female , Apgars 9/9, the weight is pending The mother and the baby tolerated the procedure well. No complications happened and I was present during whole procedure.
[2025-08-21] MEDS: METHYLERGONOVINE MALEATE 0.2 MG/ML AMP ONE (15:39)
[2025-08-21] MEDS: METHYLERGONOVINE MALEATE 0.2 MG/ML AMP IM STA (15:56)
--- NOTE | 2025-08-21 16:31 | Anesthesia Procedure Note ---
Date of Service August 21, 2025 Anesthesia Post Epidural Note Vital Signs Vital Signs: Temp Pulse Resp BP Pulse Ox O2 Del Method 36.9 C 77 20 120/79 92 Room Air 08/21/25 12:44 08/21/25 16:15 08/21/25 12:44 08/21/25 16:15 08/21/25 12:57 08/21/25 05:51 Notes Mental Status: alert / awake / arousable Nausea / Vomiting: adequately controlled Pain: adequately controlled Airway Patency, RR, SpO2: stable & adequate BP & HR: stable & adequate Hydration State: stable & adequate Neuraxial Anesthesia: was administered and sensory block is resolving Anesthetic Complications: no major complications apparent Epidural: Removed without complications and With tip intact
[2025-08-21] MEDS: BENZOCAINE 20% SPRY 85 APPLN/85 GM CAN EXT PRN (17:59)
[2025-08-21] MEDS: IBUPROFEN 600 MG TAB PO PRN (17:59)
[2025-08-21] MEDS: METHYLERGONOVINE MALEATE 0.2 MG TAB PO SCH (17:59)
[2025-08-21] MEDS: DOCUSATE SODIUM 100 MG CAP PO SCH (20:04)
[2025-08-22 04:37] VITALS: O2SAT 97
[2025-08-22 06:57] LABS: Hematocrit (blood only) 32.8 % (37.0-47.0); Hemoglobin 10.8 g/dL (12.0-16.0); Mean Corpuscular Hemoglobin 27.8 pg (25.0-34.0); Mean Corpuscular Volume 84.5 fL (80.0-100.0); Platelet Count 261 K/uL (130-400); RDW Standard Deviation 49.1 fL (36.4-46.3); Red Blood Count 3.88 M/uL (4.20-5.40); White Blood Count 12.18 K/ul (4.8-10.8)
--- NOTE | 2025-08-22 07:42 | Obstetrical Progress Note ---
Date of Service August 22, 2025 Assessment & Plan Admission and Anticipated Discharge Date Admission Date: August 21, 2025 Subjective Patient is seen and examined. She feels well, no complaints. Ambulating without dizziness Voiding without difficulty Tolerating regular diet with out N&V Bleeding is minimal No fever/ chills/ CP/ SOB/ N&V/ Leg pain Bottle feeding without problems Lab Results 08/21/25 08/22/25 Range/Units 06:34 06:21 WBC 9.02 12.18 H (4.8-10.8) K/ul RBC 4.38 3.88 L (4.20-5.40) M/uL Hgb 12.6 10.8 L (12.0-16.0) g/dL Hct 36.5 L 32.8 L (37.0-47.0) % MCV 83.3 84.5 (80.0-100.0) fL MCH 28.8 27.8 (25.0-34.0) pg MCHC 34.5 32.9 (32.0-36.0) g/dL RDW Std Deviation 47.2 H 49.1 H (36.4-46.3) fL RDW Coeff of Kory 15.6 H 15.9 H (11.5-14.5) % Plt Count 312 261 (130-400) K/uL MPV 9.9 10.1 (9.4-12.4) fL Treponema pallidum Ab Negative (Negative) Blood Type O Negative Antibody Screen NEGATIVE Vital Signs Temp Pulse Resp BP Pulse Ox O2 Del Method 08/22/25 03:35 36.5 C 79 18 120/83 97 Room Air 08/21/25 23:30 36.5 C 65 20 110/74 96 Room Air PE: General: Alert, orientedx3, NAD Abd: soft, NT, fundus firm, below Umbilicus Perineum intact, Lochia rubra minimal Ext; NT, no edema AP: 29 yo s/p , ppd# 1 VSS Afebrile doing well Continue routine care Discussed when to call All questions were answered D/C home this evening Results & Data Vital Signs (Past 12 Hours) Vital Signs Temp Pulse Resp BP Pulse Ox O2 Del Method 08/22/25 03:35 36.5 C 79 18 120/83 97 Room Air 08/21/25 23:30 36.5 C 65 20 110/74 96 Room Air
[2025-08-22] MEDS ORDERED: FERROUS SULFATE 325 MG TAB PO SCH (08:00)
[2025-08-22] MEDS: PRENATAL VITAMIN 1 TAB PO SCH (09:17)
[2025-08-22] MEDS: AMOXICILLIN/CLAVULANATE 875 MG TAB PO SCH (09:18)
[2025-08-22 12:03] VITALS: BP 119/76; PULSE 70; RESP 18; TEMP 98.1
== END 2025-08-22 13:30 | disposition home health service (06) | DRG 768 ==
LOC: OPB 05:31 → 4S1 05:32 → 4E2 17:54